=== PATIENT | female | born 1970 | race Caucasian/White ===

== ENCOUNTER 2017-01-06 09:29 | Outpatient (CLI) | payer OTHER ==
--- NOTE | 2017-01-06 19:51 | MRI Report ---
EXAM: LEFT HIP MRI WITHOUT CONTRAST EXAM DATE: 01/06/2017 10:32 AM. CLINICAL HISTORY: Left hip pain for 10 years. COMPARISON: None. TECHNIQUE: Multiplanar, multisequence T1-weighted and fluid-sensitive, small [id number]-[id number] sequences of the hip and large [id number]-[id number] sequences of the pelvis without contrast. Other: None. FINDINGS: Bones: No fractures or subluxations. No marrow edema or bone lesions. No avascular necrosis. Left Hip: No acetabular retroversion. Femoral head/neck offset is within normal limits. No effusion o r loose bodies. The articular cartilage is intact. No labral tear is demonstrated on this nonarthrogr aphic study. The ligamentum teres is intact. Other Joints: The visualized lumbar spine, sacroiliac joints, symphysis pubis, and contralateral hip are unremarkable. Musculature: No edema or fatty atrophy. Mild insertional tendinopathy of bilateral gluteus medius an d minimus tendons with mild edema. The visualized hamstring tendons are normal. The left ischiofemora l space is narrowed with mild edema in the quadratus femoris suggestive of ischiofemoral impingement. No sports hernia. Pelvic Cavity: The visualized viscera are unremarkable. No lymphadenopathy. No free fluid in the pelv is. Other: The visualized sciatic nerves are unremarkable. No bursitis. The subcutaneous tissues are unre markable. IMPRESSION: 1. The left ischiofemoral space is narrowed with mild edema in the quadratus femoris suggestive of is chiofemoral impingement. 2. No labral tear is demonstrated on this nonarthrographic study. 3. No fractures or acute bony abnormality. 4. Mild insertional tendinopathy of bilateral gluteus medius and minimus tendons with mild edema. [facility] MUSCULOSKELET[facility]IOLOG[facility] SECTION Referring Provider Line: [phone] SITE ID: [id number]
== END 2017-01-06 09:30 | disposition home or self-care (01) ==
LOC: DI 09:29
PROVIDERS: ATTEND Family Medicine
DX: M67.952 Unspecified disorder of synovium and tendon, left thigh (principal)

== ENCOUNTER 2018-06-11 14:52 | Outpatient (CLI) | payer OTHER ==
--- NOTE | 2018-06-12 10:08 | XRAY Report ---
Reason: PAIN UNSPECIFIED JOINT, LOW BACK PAIN Procedure Date: 06/11/2018 Accession Number: [id number] / [id number] Procedure: WCP - Pelvis 1 View CPT Code: FULL RESULT: EXAM: PELVIS RADIOGRAPHY EXAM DATE: 06/11/2018 03:10 PM. CLINICAL HISTORY: PAIN UNSPECIFIED JOINT, LOW BACK PAIN. COMPARISON: None. TECHNIQUE: 1 view. FINDINGS: Bones: Normal. No fracture or bone lesion. Joints: The visualized hip, pubis symphysis, and sacroiliac joints are preserved. No subluxation. Soft Tissues: IUD No soft tissue swelling. IMPRESSION: Normal pelvis radiography. [facility]
--- NOTE | 2018-06-12 10:09 | XRAY Report ---
Reason: PAIN UNSPECIFIED JOINT, LOW BACK PAIN Procedure Date: 06/11/2018 Accession Number: [id number] / [id number] Procedure: WCP - Foot 2 View BILAT CPT Code: FULL RESULT: EXAMS: 1. Right Foot Radiography 2. Left Foot Radiography EXAM DATE: 06/11/2018 03:00 PM. CLINICAL HISTORY: PAIN UNSPECIFIED JOINT, LOW BACK PAIN. COMPARISON: None. TECHNIQUE: 2 views each foot. FINDINGS: Right: Bones: Postop changes first metatarsus with screws No fractures or bone lesions. Joints: Normal. No subluxations. Soft Tissues: Normal. No soft tissue swelling. Left: Bones: Postop changes first metatarsus with screws No fractures or bone lesions. Joints: Normal. No subluxations. Soft Tissues: Normal. No soft tissue swelling. IMPRESSION: Bilateral post bunion surgery. No acute findings [facility]
--- NOTE | 2018-06-12 10:10 | XRAY Report ---
Reason: PAIN UNSPECIFIED JOINT, LOW BACK PAIN Procedure Date: 06/11/2018 Accession Number: [id number] / [id number] Procedure: WCP - Hand 2 View BILAT CPT Code: FULL RESULT: EXAMS: 1. Right Hand Radiography 2. Left Hand Radiography EXAM DATE: 06/11/2018 03:10 PM. CLINICAL HISTORY: PAIN UNSPECIFIED JOINT, LOW BACK PAIN. COMPARISON: None. TECHNIQUE: 3 views each hand. FINDINGS: Right: Bones: Normal. No fractures or bone lesions. Joints: Normal. No subluxations. Soft Tissues: Normal. No soft tissue swelling. Left: Bones: Normal. No fractures or bone lesions. Joints: Fifth DIP mild osteophyte Soft Tissues: Normal. No soft tissue swelling. IMPRESSION: 1. Negative right hand. 2. Mild degenerative changes fifth DIP joint [facility]
== END 2018-06-11 14:53 | disposition home or self-care (01) ==
LOC: DI.WCP 14:52
PROVIDERS: ATTEND Internal Medicine Rheumatology
DX: M54.5 Low back pain (principal); M19.042 Primary osteoarthritis, left hand
CPT/HCPCS: 72170

== ENCOUNTER 2020-06-17 07:52 | Outpatient (CLI) | payer OTHER ==
--- NOTE | 2020-06-17 17:29 | MRI Report ---
PROCEDURE: MRCP W/O INDICATIONS: ELEVATED DIRECT BILIRUBIN CONTRAST: None TECHNIQUE: Coronal ultra fast SE through the abdomen, axial 2-D spoiled GE in- and [id number], and breath-hold T2 FSE with fat saturation through the biliary system and pancreas. Oblique coronal and axial thin- slice ultra fast SE, radial thick-slab ultra fast SE centered on the extrahepatic bile ducts. COMPARISON: FINDINGS: Image quality: Excellent. Pancreas and biliary system: Intra- and extra-hepatic biliary ducts are non dilated. Pancreas is no rmal in morphology, without adjacent soft tissue edema. Pancreatic duct is normal in caliber, withou t developmental anomalies. Gallbladder demonstrates an anterior septum, no stones, and no polyps. No gallbladder wall thickening is present. The cystic duct is normal in caliber. The common bile duct a lso is normal. No intrahepatic biliary distention is seen. There is no common duct stone. Other solid organs: Liver and spleen are normal in size. No adrenal nodules. Both kidneys are norm al in size, without hydronephrosis. Nodes and vessels: No retroperitoneal or mesenteric adenopathy by size criteria. Aorta and inferior vena cava are normal in size. Bowel and peritoneum: Unenhanced bowel loops are normal in caliber. No free fluid. Lung bases: No basal pleural effusions. Heart size is normal. Bilateral breast implants show no ev idence of implant rupture. Bones and soft tissues: No ventral hernias. Bone marrow is of normal overall signal. IMPRESSION: No sign of biliary distention or ductal calculus. There is no inflammation involving the gallbladder. There is an anterior septum within the gallbladder, a normal anatomic variant not related to inflam matory symptomatology. Overall, the source of elevated bilirubin is not identified. Intrinsic hepatoc ellular disease may be present. A hepatic mass lesion is not seen. Reviewed by: Jose Francisco Lan MD on 06/17/2020 5:28 PM PST Approved by: Jose Francisco Lan MD on 06/17/2020 5:28 PM PST Station ID: [id number]
== END 2020-06-17 07:53 | disposition home or self-care (01) ==
LOC: DI 07:52
PROVIDERS: ATTEND Family Medicine
DX: R74.8 Abnormal levels of other serum enzymes (principal)

== ENCOUNTER 2021-06-22 19:35 | Observation (INO) | payer OTHER ==
[2021-06-22 20:02] LABS: BASOPHILS # (AUTO) 0.1 10^3/uL (0.0-0.1); BASOPHILS % (AUTO) 1.3 %; EOSINOPHILS # (AUTO) 0.2 10^3/uL (0.0-0.7); EOSINOPHILS % (AUTO) 3.3 %; HCT - HEMATOCRIT 30.4 % (37.0-47.0); HGB - HEMOGLOBIN 8.8 g/dL (12.0-16.0); LYMPHOCYTES # (AUTO) 1.4 10^3/uL (1.5-3.5); LYMPHOCYTES % (AUTO) 26.8 %; MEAN CORPUSCULAR HEMOGLOBIN 23.6 pg (27.0-31.0); MEAN CORPUSCULAR HGB CONC 28.9 g/dL (32.0-36.0); MEAN CORPUSCULAR VOLUME 81.5 fL (81.0-99.0); MEAN PLATELET VOLUME 9.2 fL (7.9-10.8); MONOCYTES # (AUTO) 0.6 10^3/uL (0.0-1.0); MONOCYTES % (AUTO) 10.5 %; NEUTROPHILS % (AUTO) 57.7 %; PLT - PLATELET COUNT 191 10^3/uL (130-450); RED BLOOD COUNT 3.73 10^6/uL (4.20-5.40); RED CELL DISTRIBUTION WIDTH 17.2 % (12.0-15.0); WHITE BLOOD COUNT 5.2 x10^3/uL (4.8-10.8)
[2021-06-22 20:22] LABS: CALCIUM 9.7 mg/dL (8.5-10.3); CREATININE 1.4 mg/dL (0.4-1.0); MAGNESIUM 2.3 mg/dL (1.7-2.8); PHOSPHORUS 2.9 mg/dL (2.5-4.6)
[2021-06-22 20:24] LABS: POTASSIUM 2.2 mmol/L (3.5-5.0)
--- NOTE | 2021-06-22 20:24 | ED Physician Documentation ---
History of Present Illness - Stated complaint Stated Complaint: LOW POTASSIUM - Chief complaint Chief Complaint: General - History obtained from History obtained from: Patient - History of Present Illness Timing: Today Pain level max: 0 Pain level now: 0 - Additonal information Additional information: Patient is a 42-year-old female who presents to the emergency department stating that she was called by her doctor to come to the emergency department for a low potassium level today. She states that she does not know how low the potassium was that the doctor from the [facility] did not tell her. She states that she has not had issues with potassium in the past. She states that she has felt mildly short of breath for several weeks. Has not noticed any blood in the stool. Nothing makes it better or worse. Occasionally has palpitations. Review of Systems Ten Systems: 10 systems reviewed and negative Constitutional: denies: Fever, Chills Throat: denies: Sore throat Cardiac: denies: Chest pain / pressure, Calf pain GI: denies: Nausea, Vomiting, Diarrhea, Hematemesis Skin: denies: Rash Musculoskeletal: denies: Neck pain, Back pain Neurologic: denies: Headache PD PAST MEDICAL HISTORY - Past Medical History Past Medical History: Yes Cardiovascular: Hypertension Neuro: Seizure disorder - Present Medications Home Medications: Ambulatory Orders Medication Instructions Recorded Confirmed Buspirone HCl 10 mg PO DAILY 06/22/21 06/22/21 Chlorthalidone 25 mg PO DAILY 06/22/21 06/22/21 Duloxetine HCl [Cymbalta] 60 mg PO DAILY 06/22/21 06/22/21 Topiramate 50 mg PO DAILY 06/22/21 06/22/21 lamoTRIgine [LaMICtal] 100 mg PO DAILY 06/22/21 06/22/21 - Allergies Allergies/Adverse Reactions: Allergies Allergy/AdvReac Type Severity Reaction Status Date / Time Sulfa (Sulfonamide Allergy Anaphylaxis Verified 06/22/21 19:42 Antibiotics) - Living Situation Living Arrangement: reports: At home PD ED PE NORMAL - Vitals Vital signs reviewed: Yes - General General: Alert and oriented X 3, No acute distress - HEENT HEENT: PERRL, Moist mucous membranes - Neck Neck: Supple, no meningeal sign - Cardiac Cardiac: RRR, Strong equal pulses - Respiratory Respiratory: No respiratory distress, Clear bilaterally - Abdomen Abdomen: Soft, Non tender, Non distended - Rectal Rectal: Pt declined - Derm Derm: Warm and dry - Extremities Extremities: No edema, No calf tenderness / cord - Neuro Neuro: Alert and oriented X 3 - Psych Psych: Normal mood, Normal affect Results - Vitals Vitals: Vital Signs - 24 hr 06/22/21 19:42 Temperature 36.5 C Heart Rate 87 Respiratory 16 Rate Blood Pressure 148/80 H O2 Saturation 100 Oxygen O2 Source Room air - EKG (time done) 2006 Rate: Rate (enter#) (67) Rhythm: NSR [place]: Normal Intervals: Normal MD QRS: Normal Ischemia: Normal ST segments - Labs Labs: Laboratory Tests 06/22/21 06/22/21 06/22/21 19:56 19:56 19:56 WBC 5.2 RBC 3.73 L Hgb 8.8 L Hct 30.4 L MCV 81.5 MCH 23.6 L MCHC 28.9 L RDW 17.2 H Plt Count 191 MPV 9.2 Neut # (Auto) 3.0 Lymph # (Auto) 1.4 L [place] # (Auto) 0.6 Eos # (Auto) 0.2 Baso # (Auto) 0.1 Absolute Nucleated RBC 0.00 Nucleated RBC % 0.0 Sodium 131 L Potassium 2.2 L* Chloride 88 L Carbon Dioxide 29 Anion Gap 14.0 H BUN 23 H Creatinine 1.4 H Estimated GFR (MDRD) 40 L Glucose 138 H Calcium 9.7 Phosphorus 2.9 Magnesium 2.3 Troponin I High Sens 7.4 B-Natriuretic Peptide 06/22/21 19:56 WBC RBC Hgb Hct MCV MCH MCHC RDW Plt Count MPV Neut # (Auto) Lymph # (Auto) [place] # (Auto) Eos # (Auto) Baso # (Auto) Absolute Nucleated RBC Nucleated RBC % Sodium Potassium Chloride Carbon Dioxide Anion Gap BUN Creatinine Estimated GFR (MDRD) Glucose Calcium Phosphorus Magnesium Troponin I High Sens B-Natriuretic Peptide 30 - Rads (name of study) cxr Radiology: Final report received, EMP read contemporaneously, See rad report (no acute disease) PD MEDICAL DECISION MAKING - ED course Complexity details: reviewed results, re-evaluated patient, considered differential, d/w patient, d/w marine engineering consultant ED course: 50-year-old female with what appears to be dehydration, acute renal insufficiency and hypokalemia, likely all secondary to the chlorthalidone. Patient is well-appearing, nontoxic. Given IV fluids and IV potassium. We will place the patient in observation for continued care. She also has anemia, unclear etiology. She declined a rectal exam here. She has not had a colonoscopy before, but could consider this as an outpatient. Discussed the case with Dr. Urena, hospitalist who accepts for observation This document was made in part using voice recognition software. While efforts are made to proofread this document, sound alike and grammatical errors may occur. The only old labs that are available currently are from 2013. Departure - Departure Disposition: ED Place in Observation Clinical Impression: Hypokalemia, Acute renal insufficiency, Hyponatremia, Hypochloremia Anemia Qualifiers: Anemia type: unspecified type Qualified Code(s): D64.9 - Anemia, unspecified Condition: Stable
[2021-06-22] MEDS ORDERED: POTASSIUM CHLOR 10 MEQ/100 ML 10 MEQ/100 ML BAG IV STA ×2 (20:27)
--- NOTE | 2021-06-22 20:29 | XRAY Report ---
PROCEDURE: Chest 1 View X-Ray INDICATIONS: dyspnea TECHNIQUE: One view of the chest was acquired. COMPARISON: None FINDINGS: Surgical changes and devices: None. Lungs and pleura: No pleural effusions or pneumothorax. Lungs are clear. Mediastinum: Mediastinal contours appear normal. Heart size is normal. Bones and chest wall: No suspicious bony lesions. Overlying soft tissues appear unremarkable. IMPRESSION: Chest without acute cardiopulmonary abnormalities. No focal airspace disease. Reviewed by: Toby Olivares MD on 06/22/2021 8:28 PM [facility] Approved by: Toby Olivares MD on 06/22/2021 8:28 PM [facility] Station ID: [id number]
[2021-06-22 21:38] LABS: B. PARAPERTUSSIS- RESP PCR PAN NOT DETECTED; B. PERTUSSIS- RESP PCR PANEL NOT DETECTED; C. PNEUMONIAE- RESP PCR PANEL NOT DETECTED; CORONAVIRUS 229E-RESP PCR NOT DETECTED; CORONAVIRUS HKU1-RESP PCR NOT DETECTED; CORONAVIRUS NL63-RESP PCR NOT DETECTED; CORONAVIRUS OC43-RESP PCR NOT DETECTED; HUMAN METAPNEUMOVIRUS NOT DETECTED; INFLUENZA A- RESP PCR PANEL NOT DETECTED; INFLUENZA B - RESP PCR PANEL NOT DETECTED; M. PNEUMONIAE- RESP PCR PANEL NOT DETECTED; PARAINFLUENZA VIRUS 1 NOT DETECTED; PARAINFLUENZA VIRUS 2 NOT DETECTED; PARAINFLUENZA VIRUS 3 NOT DETECTED; PARAINFLUENZA VIRUS 4 NOT DETECTED; RHINOVIRUS/ENTEROVIRUS NOT DETECTED; RSV- RESP PCR PANEL NOT DETECTED; SARS-CoV-2 -RESP PCR PANEL NOT DETECTED
[2021-06-22] MEDS ORDERED: SODIUM CHLORIDE FLUSH 0.9% 10 ML SYRINGE IVP PRN (21:49)
[2021-06-22] MEDS ORDERED: ACETAMINOPHEN 325 MG TABLET PO PRN (21:49)
--- NOTE | 2021-06-22 21:59 | HISTORY & PHYSICAL EXAMINATION ---
Chief Complaint - Chief Complaint Chief Complaint: My doctor sent me into ER History of Present Illness - Admitted From Admitted From:: ED - History Obtained From History obtained from: ED provider and the patient - History of Present Illness HPI Comment/Other: This is a 50-year-old white female with a history of seizure disorder, fibromyalgia, anxiety and hypertension. She was sent into the ED by her doctor's office after being called and told her potassium was very low. She had had blood tests done earlier to check her seizure medication blood levels and electrolytes. The patient denied any significant symptoms in the ED such as chest pain, shortness of breath, syncope or palpitations. Her labs were redone in the ED and showed a potassium of 2.2, sodium 131, hemoglobin 8.8 (the last hemoglobin was 14, from labs in 2013), and creatinine 1.4. She started to get iv fluids and potassium replacement in the ED and is being placed in Observation status to continue potassium replacement while on telemetry. The patient denies any hematemesis or melena. She takes Chlorthalidone for blood pressure control, as one of her medications. She is also on anti-seizure medications. These blood levels were not rechecked today in the ED. History - Past Medical History Cardiovascular: reports: Hypertension Respiratory: reports: None Neuro: reports: Seizure disorder Endocrine/Autoimmune: reports: None GI: reports: None CRITICAL CARE RN: reports: None : reports: None HEENT: reports: None Psych: reports: Depression, Anxiety, Other (Remote Hx of alcohol abuse from age 20 to 2013.) Musculoskeletal: reports: Fibromyalgia Derm: reports: None - Past Surgical History Cardiovascular: reports: Other - Family & Social History Family History Comment/Other: She has 3 children who are adults and have moved out of the house. 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 Living arrangement: At home Living Situation: With spouse/s.o. Social History Notes: She admits to alcohol abuse from age 20 until 2012, when her seizure disorder was discovered. She was sober through all her pregnancies she reported and currently has a rare beer or cocktail. She is a non-smoker and never smoked. - Substance History Use: Uses substance without health or social issues: NONE Meds/Allgy - Home Medications Home Medications: Ambulatory Orders Medication Instructions Recorded Confirmed Buspirone HCl 10 mg PO DAILY 06/22/21 06/22/21 Chlorthalidone 25 mg PO DAILY 06/22/21 06/22/21 Duloxetine HCl [Cymbalta] 60 mg PO DAILY 06/22/21 06/22/21 Topiramate 50 mg PO DAILY 06/22/21 06/22/21 lamoTRIgine [LaMICtal] 100 mg PO DAILY 06/22/21 06/22/21 - Allergies Allergies/Adverse Reactions: Allergies Allergy/AdvReac Type Severity Reaction Status Date / Time Sulfa (Sulfonamide Allergy Anaphylaxis Verified 06/22/21 19:42 Antibiotics) Review of Systems - Cardiovascular Cariovascular: reports: Palpitations (Ivone skipped beats), Other (She has had 2-3 episodes of "body shaking" and near syncope lately when she stands.) - Musculoskeletal Musculoskeletal: reports: Back pain, Joint pain (from Fibromyalgia) - Neurological Neurological: reports: Seizures (Last grand mal seizure was remote, but she gets "auras" for which she takes Lorazepam prn.) - All Other Systems All Other Systems: reports: Reviewed and negative Exam - Vital Signs Reviewed Vital Signs: Yes Vital Signs: Vital Signs x48h Temp Pulse Resp BP Pulse Ox 06/22/21 19:42 36.5 C 87 16 148/80 H 100 - Physical Exam General Appearance: positive: No acute distress, Alert, Other (Hair is shaven off, she is wearing a baseball cap.) Eyes Bilateral: positive: Normal inspection, EOMI ENT: positive: ENT inspection nml, No signs of dehydration Neck: positive: Nml inspection, No JVD Respiratory: positive: No respiratory distress, Breath sounds nml Cardiovascular: positive: Regular rate & rhythm, No murmur Abdomen: positive: Non-tender, Nml bowel sounds, No distention Skin: positive: Warm, Dry Extremities: positive: Non-tender, No pedal edema Neurologic/Psychiatric: positive: Oriented x3, Other (Non-focal) Conclusion/Plan - Problem List (1) Hypokalemia Conclusion/Plan: This is likely due to Chlorthalidone daily and long-term use, without a Potassium supplement. We will continue to replace with IV maintenance fluids containing potassium and will give potassium riders IV and oral potassium p.o. Follow her potassium level every 6-12 hours. Continue on telemetry while she has such severely low K We will also check a serum magnesium level with her next potassium blood draw since this could also be lost when using Chlorthalidone. (2) Hyponatremia Conclusion/Plan: This is likely hypovolemic hyponatremia, given her use of thiazide diuretic and the new GEORGI. Will continue replacement with IV normal saline Follow BMP daily (3) Acute renal insufficiency Conclusion/Plan: This is likely from her diuretic use. In review of systems she told me she has had "2-3 episodes of "body shaking" and near syncope lately when she stands". This could be from orthostasis. She and her think it could be seizures trying to break through, and for these symptoms her serum seizure drug levels were drawn, ordered by her doctor. Continue with IV fluids that were started in the ED. Stop and remain off the thiazide diuretic will be advised. Avoid nephrotoxins. Follow BUN/creatinine daily. Will check orthostatic vital signs in the morning. I advised she not use the chlorthalidone any longer as a blood pressure medicine. A different one can be started if needed. (4) Anemia Conclusion/Plan: Will check her serum iron stores and B12 and folate levels and guaiac of her stool to initiate the work-up of cause of anemia. Qualifiers: Anemia type: unspecified type Qualified Code(s): D64.9 - Anemia, unspecified (5) HTN (hypertension) Conclusion/Plan: Stop and remain off the thiazide diuretic will be advised. I discussed this in detail with the patient and explained why. Her "body shaking when she stands" symptom, could be near syncope from orthostasis. Will check orthostatic vital signs in the morning Her supine vital signs will be monitored and she may need to be started on a different agent for blood pressure control, if needed, potentially using Amlodipine 2.5 mg daily. (6) Seizure disorder Conclusion/Plan: Her usual anti-seizure medications will be continued. (7) Anxiety Conclusion/Plan: Her usual medications will be continued. She requests a one-time oral medication for anxiety currently. Lorazepam 1 mg p.o. at bedtime now will be ordered (8) Fibromyalgia Conclusion/Plan: Her usual medications will be continued - Lab Results Fish Bones: 06/22/21 19:56 06/22/21 19:56
[2021-06-22] MEDS ORDERED: NS W/20 MEQ KCL 1,000 ML IV SCH (22:00)
[2021-06-22] MEDS ORDERED: LORazepam 1 MG TABLET PO STA (23:45)
[2021-06-23] MEDS ORDERED: POTASSIUM CHLORIDE 20 MEQ TABLET PO ONE ×3 (00:09→11:39)
[2021-06-23] MEDS: SODIUM CHLORIDE FLUSH 0.9% 10 ML SYRINGE IVP SCH ×2 (00:39→12:45)
[2021-06-23] MEDS: POTASSIUM CHLOR 10 MEQ/100 ML 10 MEQ/100 ML BAG IV SCH ×7 (00:44→10:56)
[2021-06-23 05:31] LABS: BASOPHILS % (AUTO) 0.9 %; EOSINOPHILS # (AUTO) 0.2 10^3/uL (0.0-0.7); EOSINOPHILS % (AUTO) 3.6 %; HCT - HEMATOCRIT 28.8 % (37.0-47.0); HGB - HEMOGLOBIN 8.2 g/dL (12.0-16.0); LYMPHOCYTES # (AUTO) 1.4 10^3/uL (1.5-3.5); LYMPHOCYTES % (AUTO) 30.9 %; MEAN CORPUSCULAR HGB CONC 28.5 g/dL (32.0-36.0); MEAN CORPUSCULAR VOLUME 80.7 fL (81.0-99.0); MEAN PLATELET VOLUME 9.6 fL (7.9-10.8); MONOCYTES # (AUTO) 0.5 10^3/uL (0.0-1.0); MONOCYTES % (AUTO) 11.4 %; NEUTROPHILS # (AUTO) 2.4 10^3/uL (1.5-6.6); PLT - PLATELET COUNT 197 10^3/uL (130-450); RED BLOOD COUNT 3.57 10^6/uL (4.20-5.40); RED CELL DISTRIBUTION WIDTH 17.1 % (12.0-15.0); WHITE BLOOD COUNT 4.5 x10^3/uL (4.8-10.8)
[2021-06-23 05:53] LABS: CALCIUM 9.6 mg/dL (8.5-10.3); CREATININE 1.1 mg/dL (0.4-1.0)
[2021-06-23 06:06] LABS: FOLATE 18.78 ng/mL (5.90 - >24.8)
[2021-06-23 07:35] VITALS: BP 118/69
[2021-06-23] MEDS ORDERED: FERROUS SULFATE 325 MG TABLET PO SCH (08:26)
[2021-06-23] MEDS ORDERED: busPIRone 5 MG TABLET PO SCH ×2 (09:00→09:39)
[2021-06-23] MEDS ORDERED: lamoTRIgine 100 MG TABLET PO SCH (09:00)
[2021-06-23] MEDS ORDERED: DULoxetine 30 MG CAPSULE PO SCH ×2 (09:00→09:39)
[2021-06-23] MEDS ORDERED: TOPIRAMATE 25 MG TABLET PO SCH (09:00)
--- NOTE | 2021-06-23 09:23 | Discharge Plan ---
Discharge Plan Problem Reviewed?: Yes Disposition: Home, Self Care Condition: Stable Prescriptions: Ferrous Sulfate [Feosol] 325 mg PO DAILY #30 tablet Diet: Regular Activity Restrictions: Activity as Tolerated Shower Restrictions: No (fall precaution) Instruction Topics: Anemia Ch, Dehydration, Hypokalemia Dc, Hyponatremia Dc, ED Diet High Potassium Health Concerns: dehydration, hypokalemia, anemia Plan of Treatment: You had significant hypokalemia and dehydration at the admission. After treatment, your hypokalemia and dehydration status are resolved now. Your home medication HCTZ is hold now. You may keep hydration at home, followup with your PCP in one week to recheck your Electrolytes. Your HGB is 8.2 now. You are also found iron deficiency. You are prescribed iron supplement. You may follow-up with your PCP in 1 week to recheck your hemoglobin level, then Follow-up with staff air tactical officer as outpatient Care Goals: Stabilization and improvement/resolved of your medical problems Assessment: Discussed the care plan with you, answered your questions, you understood and agreed Additional Instructions or Follow Up instructions: You may follow-up with your PCP in 1 week, and blood work to check hemoglobin and electrolytes. Should your symptoms return or worse, you may present to ER or call 911 for help No Smoking: If you smoke, Please STOP! Call for help. Follow-up with: RAMIRO AGUILAR MD [Primary Care Provider] -
--- NOTE | 2021-06-23 09:55 | DISCHARGE SUMMARY ---
Discharge Summary Admit Date: 06/22/21 Discharge Date: 06/23/21 Discharging Provider: Karel Huerta Primary Care Provider: Toby Murguia Condition at Discharge: Stable Discharge Disposition: 01 Home, Self Care Discharge Facility Name: home - DIAGNOSES Discharge Diagnoses with Status of Each Condition: (1) Hypokalemia potassium is 3.4 now. pt was given another 20meq PO potassium. Patient may follow-up with her PCP to recheck electrolytes in 1 week (2) Hyponatremia Sodium Is 134. Advised patient keep hydration, follow-up with her PCP to recheck electrolytes in 1 week. Patient's home medication HCTZ is on hold. (3) Acute renal insufficiency Resolved, patient may keep hydration in the home (4) Anemia pt denies black or fresh bloody stool. pt declined rectal examination at ER. Patient is found to have iron deficiency. Patient is prescript iron supplement. Patient may follow-up with her PCP to recheck hemoglobin In 1 week and follow-up with life trainer as outpatient (5) HTN (hypertension) stable. (6) Seizure disorder stable, no seizure at hospital. Resume patient home meds (7) Anxiety Stable, resume patient's home meds (8) Fibromyalgia Stable, resume home meds - [facility] History of Present Illness: refer from Dr. Danay Delong's HPI on 06/22/21 This is a 50-year-old white female with a history of seizure disorder, fibromyalgia, anxiety and hypertension. She was sent into the ED by her doctor's office after being called and told her potassium was very low. She had had blood tests done earlier to check her seizure medication blood levels and electrolytes. The patient denied any significant symptoms in the ED such as chest pain, shortness of breath, syncope or palpitations. Her labs were redone in the ED and showed a potassium of 2.2, sodium 131, hemoglobin 8.8 (the last hemoglobin was 14, from labs in 2013), and creatinine 1.4. She started to get iv fluids and potassium replacement in the ED and is being placed in Observation status to continue potassium replacement while on telemetry. The patient denies any hematemesis or melena. She takes Chlorthalidone for blood pressure control, as one of her medications. She is also on anti-seizure medications. These blood levels were not rechecked today in the ED. - ALLERGIES Allergies/Adverse Reactions: Allergies Allergy/AdvReac Type Severity Reaction Status Date / Time Sulfa (Sulfonamide Allergy Anaphylaxis Verified 06/22/21 19:42 Antibiotics) - MEDICATIONS Home Medications: Ambulatory Orders Medication Instructions Recorded Confirmed Buspirone HCl 10 mg PO DAILY 06/22/21 06/22/21 Duloxetine HCl [Cymbalta] 60 mg PO DAILY 06/22/21 06/22/21 Topiramate 50 mg PO DAILY 06/22/21 06/22/21 lamoTRIgine [LaMICtal] 100 mg PO DAILY 06/22/21 06/22/21 Ferrous Sulfate [Feosol] 325 mg PO DAILY #30 tablet 06/23/21 - PHYSICAL EXAM AT DISCHARGE General Appearance: positive: No acute distress, Alert. negative: Lethargic Eyes Bilateral: positive: Normal inspection, No lid inflammation ENT: positive: ENT inspection nml, No signs of dehydration. negative: Purulent nasal drainage Neck: positive: Nml inspection, Trachea midline. negative: Tracheal deviation Respiratory: positive: Chest non-tender, No respiratory distress, Breath sounds nml. negative: Wheezes, Rales Cardiovascular: positive: Regular rate & rhythm, No murmur. negative: Tachycardia, Bradycardia, Systolic murmur Peripheral Pulses: positive: 2+ Abdomen: positive: Non-tender, Nml bowel sounds, No distention. negative: Tenderness Back: positive: Nml inspection Skin: positive: Color nml, Warm, Dry. negative: Cyanosis Extremities: positive: Non-tender, Full ROM, Nml appearance Neurologic/Psychiatric: positive: Oriented x3, Motor nml, Sensation nml, Mood/affect nml. negative: Weakness, Sensory loss, Facial droop, Slurred/abnml speech, Depressed mood/affect - LABS Result Diagrams: 06/23/21 04:32 06/23/21 11:04 - FOLLOW UP Follow Up: You had significant hypokalemia and dehydration at the admission. After treatment, your hypokalemia and dehydration status are resolved now. Your home medication HCTZ is hold now. You may keep hydration at home, followup with your PCP in one week to recheck your Electrolytes. Your HGB is 8.2 now. You are also found iron deficiency. You are prescribed iron supplement. You may follow-up with your PCP in 1 week to recheck your hemoglobin level, then Follow-up with life trainer as outpatient. You may follow-up with your PCP in 1 week, and blood work to check hemoglobin and electrolytes. Should your symptoms return or worse, you may present to ER or call 911 for help - TIME SPENT Time Spent in Discharge (Minutes): 30
== END 2021-06-23 12:48 | disposition home or self-care (01) ==
LOC: ED 19:35 → MS2 21:49
PROVIDERS: ADMIT Internal Medicine; ATTEND Nurse Practitioner Gerontology
DX: E87.6 Hypokalemia (principal); E86.0 Dehydration; G40.909 Epilepsy, unspecified, not intractable, without status epilepticus; F32.A Depression, unspecified; F41.9 Anxiety disorder, unspecified; E87.1 Hypo-osmolality and hyponatremia; N28.9 Disorder of kidney and ureter, unspecified; D64.9 Anemia, unspecified; I10 Essential (primary) hypertension; M79.7 Fibromyalgia; R00.2 Palpitations; Z20.822 Contact with and (suspected) exposure to COVID-19
CPT/HCPCS: 0202U; 36415; 71045; 80048; 80175; 82607; 82746; 83540; 83735; 83880; 84100; 84132; 84466; 84484; 85025; 93005; 96360; 96361; 99283; 99285; A9270; G0378; J8499

== ENCOUNTER 2021-08-08 10:45 | Outpatient (CLI) | payer OTHER ==
[2021-08-08] MEDS: ALBUTEROL 1 PUFF INH STA (12:53)
== END 2021-08-08 10:46 | disposition home or self-care (01) ==
LOC: RT 10:45
PROVIDERS: ATTEND Family Medicine
DX: R06.00 Dyspnea, unspecified (principal)
CPT/HCPCS: 94060; 94729

== ENCOUNTER 2023-01-25 19:59 | Emergency (ER) | payer OTHER ==
[2023-01-25 20:27] LABS: MUDS CUTOFF CONCENTRATIONS CUTOFF CONC BELOW:
[2023-01-25 20:31] LABS: HCT - HEMATOCRIT 38.4 % (37.0-47.0); HGB - HEMOGLOBIN 12.6 g/dL (12.0-16.0); LYMPHOCYTES # (AUTO) 0.8 10^3/uL (1.5-3.5); LYMPHOCYTES % (AUTO) 18.1 %; MEAN CORPUSCULAR HEMOGLOBIN 35.2 pg (27.0-31.0); MEAN CORPUSCULAR HGB CONC 32.8 g/dL (32.0-36.0); MEAN CORPUSCULAR VOLUME 107.3 fL (81.0-99.0); MEAN PLATELET VOLUME 8.5 fL (7.9-10.8); MONOCYTES # (AUTO) 0.4 10^3/uL (0.0-1.0); NEUTROPHILS # (AUTO) 3.1 10^3/uL (1.5-6.6); NEUTROPHILS % (AUTO) 71.7 %; PLT - PLATELET COUNT 79 10^3/uL (130-450); RED BLOOD COUNT 3.58 10^6/uL (4.20-5.40); RED CELL DISTRIBUTION WIDTH 13.5 % (12.0-15.0); WHITE BLOOD COUNT 4.3 x10^3/uL (4.8-10.8)
[2023-01-25 20:31] LABS: BILIRUBIN,URINE NEGATIVE (NEGATIVE); GLUCOSE, URINE (UA) NEGATIVE (NEGATIVE); KETONES,URINE (UA) NEGATIVE (NEGATIVE); LEUKOCYTE ESTERASE, URINE NEGATIVE (NEGATIVE); NITRITE,URINE NEGATIVE (NEGATIVE); OCCULT BLOOD,URINE NEGATIVE (NEGATIVE); PH,URINE 6.5 PH (5.0-7.5); PROTEIN,URINE NEGATIVE (NEGATIVE); UROBILINOGEN,URINE 1 (NORMAL) E.U./dL (NORMAL)
[2023-01-25 20:33] LABS: CLARITY,URINE CLEAR (CLEAR); HCG UR QUAL NEGATIVE
[2023-01-25 20:42] LABS: AMPHETAMINE SCREEN,URINE NEGATIVE (NEGATIVE); BARBITURATE SCREEN,UR NEGATIVE (NEGATIVE); BENZODIAZEPINES SCREEN, URINE POSITIVE (NEGATIVE); COCAINE SCREEN URINE NEGATIVE (NEGATIVE); METHADONE SCREEN, URINE NEGATIVE (NEGATIVE); METHAMPHETAMINES SCREEN, URINE NEGATIVE (NEGATIVE); OPIATE SCREEN, URINE NEGATIVE (NEGATIVE); OXYCODONE SCREEN, URINE POSITIVE (NEGATIVE); PROPOXYPHENE SCREEN, URINE NEGATIVE (NEGATIVE); THC CANNABINOID SCREEN, URINE NEGATIVE (NEGATIVE); TRICYCLIC ANTIDEPRESSANT,URINE NEGATIVE (NEGATIVE)
[2023-01-25 20:52] LABS: ALBUMIN 4.5 g/dL (3.2-5.5); ALBUMIN/GLOBULIN RATIO 1.4 (1.0-2.2); ALKALINE PHOSPHATASE 228 IU/L (42-121); ALT ALANINE AMINOTRANSFERASE 47 IU/L (10-60); AST ASPARTATE AMINOTRANSFERASE 81 IU/L (10-42); BUN - BLOOD UREA NITROGEN 17 mg/dL (6-20); CALCIUM 10.4 mg/dL (8.5-10.3); CARBON DIOXIDE - CO2 25 mmol/L (21-32); CHLORIDE 104 mmol/L (101-111); CREATININE 0.9 mg/dL (0.6-1.3); GFR - MDRD 66 (>89); GLUCOSE 92 mg/dL (74-104); LIPASE 94 U/L (11-82); SODIUM 139 mmol/L (135-145); TOTAL PROTEIN 7.8 g/dL (6.4-8.9)
[2023-01-25 20:53] LABS: ACETAMINOPHEN < 0.1 ug/mL; SALICYLATE < 1.5 mg/dL
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
[2023-01-25 21:29] LABS: THYROID STIMULATING HORMONE 1.23 uIU/mL (0.34-5.60)
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
[2023-01-26] MEDS ORDERED: ALPRAZolam 0.25 MG TABLET PO STA (02:45)
[2023-01-26] MEDS ORDERED: LORazepam 1 MG TABLET PO PRN (03:35)
[2023-01-26] MEDS ORDERED: ALBUTEROL NEB 2.5 MG/3 ML INH PRN (03:35)
[2023-01-26] MEDS ORDERED: traZODone 50 MG TABLET PO STA (03:37)
[2023-01-26] MEDS ORDERED: TOPIRAMATE 25 MG TABLET PO SCH (07:00)
[2023-01-26 07:14] VITALS: BP 109/63; O2SAT 96
[2023-01-26] MEDS ORDERED: DULoxetine 30 MG CAPSULE PO SCH (09:00)
[2023-01-26] MEDS ORDERED: lamoTRIgine 100 MG TABLET PO SCH (09:00)
[2023-01-26] MEDS ORDERED: lisinopriL 5 MG TABLET PO SCH (21:00)
[2023-01-26] MEDS ORDERED: traZODone 50 MG TABLET PO SCH ×2 (21:00)
== END 2023-01-26 08:30 ==
LOC: EDUNIT# → ED 19:59
DX: F32.A Depression, unspecified (principal); T46.4X2A Poisoning by angiotensin-converting-enzyme inhibitors, intentional self-harm, initial encounter; R89.2 Abnormal level of other drugs, medicaments and biological substances in specimens from other organs, systems and tissues; Z20.822 Contact with and (suspected) exposure to COVID-19
CPT/HCPCS: 36415; 80053; 80306; 80307; 80320; 80329; 81003; 81025; 83690; 84443; 85025; 87635; 94640; 99285; A9270; G0427; Q3014; 81001; 87086

== ENCOUNTER 2023-12-18 02:09 | Inpatient (IN) | payer OTHER ==
[2023-12-18 02:36] LABS: HCT - HEMATOCRIT 35.5 % (37.0-47.0); HGB - HEMOGLOBIN 12.4 g/dL (12.0-16.0); LYMPHOCYTES # (AUTO) 1.6 10^3/uL (1.5-3.5); LYMPHOCYTES % (AUTO) 32.4 %; MEAN CORPUSCULAR HEMOGLOBIN 36.7 pg (27.0-31.0); MEAN CORPUSCULAR HGB CONC 34.9 g/dL (32.0-36.0); MEAN PLATELET VOLUME 9.9 fL (7.9-10.8); MONOCYTES # (AUTO) 0.5 10^3/uL (0.0-1.0); MONOCYTES % (AUTO) 10.2 %; NEUTROPHILS # (AUTO) 2.7 10^3/uL (1.5-6.6); NEUTROPHILS % (AUTO) 57.2 %; PLT - PLATELET COUNT 54 10^3/uL (130-450); RED BLOOD COUNT 3.38 10^6/uL (4.20-5.40); RED CELL DISTRIBUTION WIDTH 14.2 % (12.0-15.0); WHITE BLOOD COUNT 4.8 x10^3/uL (4.8-10.8)
--- NOTE | 2023-12-18 02:38 | ED Physician Documentation ---
History of Present Illness - Stated complaint Stated Complaint: POSS OD - Chief complaint Chief Complaint: MHE - History obtained from History obtained from: Family () - Additonal information Additional information: 53-year-old woman with history of depression, anxiety, presents status post heavy alcohol use with vodka tonight as well as multiple pills of Ativan 0.5mg. saw her take numerous Ativan 0.5 mg tonight and then vomit immediately after. He was able to get 8 pills away from her. He states that she may have taken as many as 20 pills. Her prescription bottle states that she filled the ativan pills in July 2023 and states she's been taking as needed. He is unsure about any coingestions. Patient is sedated appearing upon arrival. 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 : None HEENT: None Psych: Depression, Anxiety, Other Musculoskeletal: Fibromyalgia Derm: None - Past Surgical History Past Surgical History: Yes Cardiovascular: Other - Present Medications Home Medications: Ambulatory Orders Medication Instructions Recorded Confirmed Topiramate 50 mg PO DAILY 06/22/21 01/25/23 LORazepam [Ativan] 1 mg PO PRN PRN 07/23/21 01/25/23 Albuterol Sulfate 1.25 mg IH DAILY 01/25/23 01/25/23 DULoxetine [Cymbalta] 30 mg PO DAILY 01/25/23 01/25/23 Eletriptan HBr [Relpax] 20 mg PO DAILY PRN 01/25/23 01/25/23 Fluticasone Propion/Salmeterol 1 puffs IH BID 01/25/23 01/25/23 [Fluticasone-Salmeterol 230-21] Lisinopril [Zestril] 10 mg PO DAILY 01/25/23 01/25/23 Montelukast [Singulair] 10 mg PO QPM 01/25/23 01/25/23 Tiotropium [place] [Spiriva 1 puffs IH DAILY PM 01/25/23 01/25/23 Respimat] lamoTRIgine [Lamictal Xr] 250 mg PO BID 01/25/23 01/25/23 traZODone [Desyrel] 50 mg PO HS 01/25/23 01/25/23 - Allergies Allergies/Adverse Reactions: Allergies Allergy/AdvReac Type Severity Reaction Status Date / Time Sulfa (Sulfonamide Allergy Anaphylaxis Verified 01/25/23 20:10 Antibiotics) - Social History Does the pt smoke?: No Smoking Status: Never smoker Does the pt drink ETOH?: Yes Does the pt have substance abuse?: No - Immunizations Immunizations are current?: Yes PD ED PE NORMAL - Vitals Vital signs reviewed: Yes - General General: No acute distress, Well developed/nourished, Other (sedated appearing, eye opening to verbal cues, intermittently squeezing hand on command. nonverbal) - HEENT HEENT: Atraumatic, PERRL, EOMI, Moist mucous membranes, Pharynx benign - Neck Neck: Supple, no meningeal sign - Cardiac Cardiac: RRR - Respiratory Respiratory: No respiratory distress, Clear bilaterally - Abdomen Abdomen: Non tender, Non distended - Derm Derm: Normal color, Warm and dry - Extremities Extremities: No deformity - Neuro Eye Opening: To Voice Motor: Obeys Commands Verbal: None GCS Score: 10 - Psych Psych: Other (sedated appearing) Results - Vitals Vitals: Vital Signs - 24 hr 12/18/23 12/18/23 12/18/23 02:19 02:35 02:53 Temperature 36.0 C L Heart Rate 79 93 88 Respiratory 18 18 14 Rate Blood Pressure 137/82 H 137/82 H 129/84 H O2 Saturation 95 98 98 If not protocol 2 2 : Oxygen Flow, liters/minute Oxygen O2 Source Nasal cannula - EKG (time done) 0244 EKG releavant findings:: EKG personally interpreted by author of this note. Relevant findings are: Rate: Rate (enter#) (87) Rhythm: NSR [place]: Normal Intervals: Normal MI QRS: Normal Ischemia: Normal ST segments - Labs Labs: Laboratory Tests 12/18/23 12/18/23 02:33 02:33 WBC 4.8 RBC 3.38 L Hgb 12.4 Hct 35.5 L MCV 105.0 H MCH 36.7 H MCHC 34.9 RDW 14.2 Plt Count 54 L MPV 9.9 Neut # (Auto) 2.7 Lymph # (Auto) 1.6 [place] # (Auto) 0.5 Eos # (Auto) 0.0 Baso # (Auto) 0.0 Absolute Nucleated RBC 0.00 Nucleated RBC % 0.0 Sodium 132 L Potassium 3.3 L Chloride 98 L Carbon Dioxide 23 Anion Gap 11.0 BUN 12 Creatinine 0.9 Estimated GFR (MDRD) 66 L Glucose 104 Calcium 8.8 Magnesium 1.7 Total Bilirubin 0.8 AST 47 H ALT 42 Alkaline Phosphatase 173 H Total Creatine Kinase 67 Total Protein 7.3 Albumin 4.2 Globulin 3.1 Albumin/Globulin Ratio 1.4 Lipase 115 H Acetaminophen 0.2 PD Medical Decision Making - ED course ED course: 53yF presents s/p overdose of ativan and alcohol tonight. patient has prior history of suicidal ideation per spouse. Plan to admit for monitoring for overdose. Departure - Departure Forms: PCP List
[2023-12-18 02:47] LABS: MAGNESIUM 1.7 mg/dL (1.7-2.3)
[2023-12-18] MEDS: SODIUM CHLORIDE 0.9% 1,000 ML IV STA ×2 (02:48→03:25)
[2023-12-18 02:53] LABS: ACETAMINOPHEN 0.2 ug/mL; ALBUMIN 4.2 g/dL (3.2-5.5); ALBUMIN/GLOBULIN RATIO 1.4 (1.0-2.2); ALKALINE PHOSPHATASE 173 IU/L (42-121); ALT ALANINE AMINOTRANSFERASE 42 IU/L (10-60); AST ASPARTATE AMINOTRANSFERASE 47 IU/L (10-42); BILIRUBIN,TOTAL 0.8 mg/dL (0.2-1.0); BUN - BLOOD UREA NITROGEN 12 mg/dL (6-20); CALCIUM 8.8 mg/dL (8.5-10.3); CARBON DIOXIDE - CO2 23 mmol/L (21-32); CHLORIDE 98 mmol/L (101-111); CK- CREATINE KINASE 67 IU/L (30-223); CREATININE 0.9 mg/dL (0.6-1.3); GFR - MDRD 66 (>89); GLUCOSE 104 mg/dL (74-104); LIPASE 115 U/L (11-82); POTASSIUM 3.3 mmol/L (3.5-4.5); SODIUM 132 mmol/L (135-145); TOTAL PROTEIN 7.3 g/dL (6.4-8.9)
[2023-12-18 03:05] LABS: THYROID STIMULATING HORMONE 1.96 uIU/mL (0.34-5.60)
[2023-12-18 03:09] LABS: ETOH - ETHANOL 250.6 mg/dL
[2023-12-18 03:13] LABS: SALICYLATE < 1.5 mg/dL
[2023-12-18] MEDS ORDERED: ONDANSETRON ODT 4 MG TABLET TL PRN (04:45)
[2023-12-18] MEDS ORDERED: ACETAMINOPHEN 325 MG TABLET PO PRN (04:45)
[2023-12-18 05:43] LABS: HCT - HEMATOCRIT 31.5 % (37.0-47.0); LYMPHOCYTES % (AUTO) 34.3 %; MEAN CORPUSCULAR HEMOGLOBIN 36.9 pg (27.0-31.0); MEAN CORPUSCULAR HGB CONC 34.9 g/dL (32.0-36.0); MEAN CORPUSCULAR VOLUME 105.7 fL (81.0-99.0); MEAN PLATELET VOLUME 9.3 fL (7.9-10.8); MONOCYTES % (AUTO) 7.9 %; NEUTROPHILS % (AUTO) 56.7 %; PLT - PLATELET COUNT 39 10^3/uL (130-450); RED BLOOD COUNT 2.98 10^6/uL (4.20-5.40); RED CELL DISTRIBUTION WIDTH 14.3 % (12.0-15.0); WHITE BLOOD COUNT 2.8 x10^3/uL (4.8-10.8)
--- NOTE | 2023-12-18 05:46 | HISTORY & PHYSICAL EXAMINATION ---
Chief Complaint - Chief Complaint Chief Complaint: od, lethargy History of Present Illness - History of Present Illness HPI Comment/Other: pt with h/o depression, anxiety and previous SI brought to hospital s/p OD on approx 20 pills, per . pt also consumed large amounts of etoh. denies having an altercation but states he had told her she needs to sleep. she also reportedly vomited. no reports of suicide per . History - Past Medical History Cardiovascular: reports: Hypertension Respiratory: reports: Asthma Neuro: reports: Migraines, Seizure disorder, Tremors Endocrine/Autoimmune: reports: None GI: reports: None ESTATE ADMINISTRATOR: reports: None : reports: None HEENT: reports: None Psych: reports: Depression, Anxiety, Other Musculoskeletal: reports: Fibromyalgia Derm: reports: None MRSA Hx?: No - Past Surgical History Cardiovascular: reports: Other - Family & Social History Family History Comment/Other: She has 3 children who are adults and have moved out of the house. 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 Living Situation: With spouse/s.o. Social History Notes: She admits to alcohol abuse from age 20 until 2012, when her seizure disorder was discovered. She was sober through all her pregnancies she reported and currently has a rare beer or cocktail. She is a non-smoker and never smoked. - Substance History Use: Uses substance without health or social issues: NONE, Alcohol Meds/Allgy - Home Medications Home Medications: Ambulatory Orders Medication Instructions Recorded Confirmed Topiramate 50 mg PO DAILY 06/22/21 01/25/23 LORazepam [Ativan] 1 mg PO PRN PRN 07/23/21 01/25/23 Albuterol Sulfate 1.25 mg IH DAILY 01/25/23 01/25/23 DULoxetine [Cymbalta] 30 mg PO DAILY 01/25/23 01/25/23 Eletriptan HBr [Relpax] 20 mg PO DAILY PRN 01/25/23 01/25/23 Fluticasone Propion/Salmeterol 1 puffs IH BID 01/25/23 01/25/23 [Fluticasone-Salmeterol 230-21] Lisinopril [Zestril] 10 mg PO DAILY 01/25/23 01/25/23 Montelukast [Singulair] 10 mg PO QPM 01/25/23 01/25/23 Tiotropium [place] [Spiriva 1 puffs IH DAILY PM 01/25/23 01/25/23 Respimat] lamoTRIgine [Lamictal Xr] 250 mg PO BID 01/25/23 01/25/23 traZODone [Desyrel] 50 mg PO HS 01/25/23 01/25/23 - Allergies Allergies/Adverse Reactions: Allergies Allergy/AdvReac Type Severity Reaction Status Date / Time Sulfa (Sulfonamide Allergy Anaphylaxis Verified 01/25/23 20:10 Antibiotics) Review of Systems - Other Findings Other Findings: pt somnolent / lethargic. unable to obtain at this time Exam - Vital Signs Vital Signs: Vital Signs x48h Temp Pulse Resp BP Pulse Ox O2 Flow Rate 12/18/23 05:30 85 16 125/88 H 100 2 12/18/23 05:00 78 16 100/70 100 2 12/18/23 04:30 81 16 103/70 99 2 12/18/23 04:00 83 16 107/67 99 2 12/18/23 03:25 83 16 111/72 99 12/18/23 02:53 88 14 129/84 H 98 2 12/18/23 02:35 93 18 137/82 H 98 2 12/18/23 02:19 36.0 C L 79 18 137/82 H 95 - Physical Exam Comments/Other: gen - asleep / lethargic. at bedside heent - nc/at heart - per ed charting lungs - breathing unlabored abd - soft msk - no acute abnl noted Conclusion/Plan - Lab Results Fish Bones: 12/18/23 02:33 12/18/23 02:33 - Other Other Results/Comments: pt with - - drug overdose multiple substances, but quantity unclear also with etoh intoxication maintaining airway, somnolent not a suicide attempt per - toxic metabolic encephalopathy d/t above maintaining airway, somnolent - h/o suicide attempt denies that this was an attempt nor did she verbalize anything
[2023-12-18 05:54] LABS: MAGNESIUM 1.6 mg/dL (1.7-2.3)
[2023-12-18 05:55] LABS: SLIDE REVIEW? Indicated
[2023-12-18 05:58] LABS: ABNORMAL LYMPHS % (MANUAL) 0 %; BAND NEUTROPHILS % (MANUAL) 0 %
[2023-12-18 06:01] LABS: ALBUMIN 3.8 g/dL (3.2-5.5); ALBUMIN/GLOBULIN RATIO 1.4 (1.0-2.2); ALKALINE PHOSPHATASE 149 IU/L (42-121); ALT ALANINE AMINOTRANSFERASE 35 IU/L (10-60); AST ASPARTATE AMINOTRANSFERASE 40 IU/L (10-42); BILIRUBIN,TOTAL 0.6 mg/dL (0.2-1.0); BUN - BLOOD UREA NITROGEN 10 mg/dL (6-20); CARBON DIOXIDE - CO2 21 mmol/L (21-32); CHLORIDE 105 mmol/L (101-111); CHOL/HDL RATIO 3.7 (<4.4); CHOLESTEROL 166 mg/dL; CREATININE 0.7 mg/dL (0.6-1.3); GFR - MDRD 88 (>89); GLUCOSE 92 mg/dL (74-104); HDL CHOLESTEROL 45 mg/dL; LDL CHOLESTEROL,CALCULATED 80 mg/dL; LDL/HDL RATIO 1.8 (<4.4); POTASSIUM 3.4 mmol/L (3.5-4.5); SODIUM 135 mmol/L (135-145); TOTAL PROTEIN 6.5 g/dL (6.4-8.9); TRIGLYCERIDES 204 mg/dL; VLDL CHOLESTEROL 41 mg/dL
[2023-12-18 06:05] LABS: LYMPHOCYTES % (MANUAL) 34 %; MONOCYTES # (MANUAL) 0.1 10^3/uL (0.0-1.0); NEUTROPHILS # (MANUAL) 1.7 10^3/uL (1.5-6.6)
[2023-12-18 06:06] LABS: PLATELET MORPHOLOGY NORMAL APPEARANCE (NORMAL); RBC MORPHOLOGY (MULTIPLE) 1+ MACROCYTOSIS (NORMAL)
[2023-12-18 06:07] LABS: PLATELET ESTIMATE, MANUAL DECREASED (<130,000) (NORMAL)
[2023-12-18 06:08] LABS: DIFFERENTIAL COMMENT MANUAL DIFFERENTIAL
[2023-12-18 06:13] LABS: THYROID STIMULATING HORMONE 0.99 uIU/mL (0.34-5.60)
[2023-12-18] MEDS: BUDESONIDE 0.5 MG/2 ML NEB INH SCH (08:17)
[2023-12-18] MEDS: FORMOTEROL FUMARATE NEB 20 MCG/2 ML INH SCH (08:18)
[2023-12-18] MEDS: IPRATROPIUM 0.2 MG/ML NEB INH SCH (08:18)
[2023-12-18] MEDS: ALBUTEROL NEB 2.5 MG/3 ML INH SCH (08:18)
[2023-12-18] MEDS: LACTATED RINGERS 1,000 ML IV SCH (08:43)
[2023-12-18] MEDS: SODIUM CHLORIDE FLUSH 0.9% 10 ML SYRINGE IVP SCH (08:44)
[2023-12-18] MEDS ORDERED: FLUTICASONE PROPION IH SCH (09:00)
[2023-12-18] MEDS ORDERED: [UNRECOGNIZED DRUG - OTHER] IH SCH (09:00)
[2023-12-18] MEDS ORDERED: SALMETEROL IH SCH (09:00)
[2023-12-18] MEDS: FAMOTIDINE 20 MG/2 ML VIAL IVP SCH (09:28)
[2023-12-18] MEDS: lisinopriL 5 MG TABLET PO SCH (09:30)
--- NOTE | 2023-12-18 11:12 | MISCELLANEOUS PROVIDER NOTE ---
Miscellaneous Provider Note - - Note: admitted this morning by telemedicine. On further interview with her , there is concern for amitriptyline overdose. He showed an empty bottle. This was filled in June for a 30-day supply, so unsure if she is actively taking this. UDS ordered to determine whether or not amitriptyline is in her system. This will not affect her immediate disposition, but it will necessitate a conversation with poison control
--- NOTE | 2023-12-18 11:53 | PHARMACY PROGRESS NOTE ---
- Best Possible Medication History Admit Date and Time: 12/18/23 0446 Processed by: Pharmacy Medications reviewed in ED?: Yes Patient Interview: Pt unable to participate Secondary Source(s): Spouse/Significant other, Pharmacy records, Insurance rec ords As the person ultimately responsible for medication therapy, providers are able to order a medication from an existing home medication list in [facility] via the "Reconcile Routine" prior to Confirmation of that medication by media production support manager. Such practice is discouraged except when the physician, in their clinical judgment, deems that a medical need exists for a medication without regard to previous use.
[2023-12-18 12:17] LABS: BILIRUBIN,URINE NEGATIVE (NEGATIVE); GLUCOSE, URINE (UA) NEGATIVE (NEGATIVE); KETONES,URINE (UA) NEGATIVE (NEGATIVE); LEUKOCYTE ESTERASE, URINE NEGATIVE (NEGATIVE); NITRITE,URINE NEGATIVE (NEGATIVE); OCCULT BLOOD,URINE NEGATIVE (NEGATIVE); PH,URINE 6.5 PH (5.0-7.5); PROTEIN,URINE NEGATIVE (NEGATIVE); UROBILINOGEN,URINE 0.2 (NORMAL) E.U./dL (NORMAL)
[2023-12-18 12:19] LABS: CLARITY,URINE CLEAR (CLEAR)
[2023-12-18 12:28] LABS: AMPHETAMINE SCREEN,URINE NEGATIVE (NEGATIVE); BARBITURATE SCREEN,UR NEGATIVE (NEGATIVE); BENZODIAZEPINES SCREEN, URINE NEGATIVE (NEGATIVE); BUPRENORPHINE SCREEN, URINE NEGATIVE (NEGATIVE); COCAINE SCREEN URINE NEGATIVE (NEGATIVE); METHADONE SCREEN, URINE NEGATIVE (NEGATIVE); METHAMPHETAMINES SCREEN, URINE NEGATIVE (NEGATIVE); OPIATE SCREEN, URINE NEGATIVE (NEGATIVE); OXYCODONE SCREEN, URINE NEGATIVE (NEGATIVE); THC CANNABINOID SCREEN, URINE NEGATIVE (NEGATIVE); TRICYCLIC ANTIDEPRESSANT,URINE POSITIVE (NEGATIVE)
[2023-12-18 13:51] LABS: ESTIMATED AVERAGE GLUCOSE 91 mg/dL (70-100); HEMOGLOBIN A1c% 4.8 % (4.27-6.07)
[2023-12-18] MEDS: MAGNESIUM SULFATE 2 GRAM 2 GM/50 ML BAG IV ONE (15:26)
[2023-12-18] MEDS: POTASSIUM CHLOR 10 MEQ/100 ML 10 MEQ/100 ML BAG IV SCH (16:41)
[2023-12-18] MEDS ORDERED: ACETAMINOPHEN 1,000 MG/100 ML 1,000 MG/100 ML BAG IV PRN (19:06)
--- NOTE | 2023-12-18 19:30 | ED Physician Documentation ---
ED Addendum - Addendum Addendum: 12/18/23 19:28 Patient was seen by hospitalist team after change of shift. Pt was being more rousable and having good vitals, sats, resp status. Change of status for patient from ICU to Med/Surg due to stability.
[2023-12-18] MEDS: SODIUM CHLORIDE FLUSH 0.9% 10 ML SYRINGE IVP PRN (22:24)
[2023-12-19 05:58] LABS: HCT - HEMATOCRIT 36.2 % (37.0-47.0); HGB - HEMOGLOBIN 12.8 g/dL (12.0-16.0); LYMPHOCYTES # (AUTO) 0.7 10^3/uL (1.5-3.5); LYMPHOCYTES % (AUTO) 16.9 %; MEAN CORPUSCULAR HGB CONC 35.4 g/dL (32.0-36.0); MEAN CORPUSCULAR VOLUME 104.6 fL (81.0-99.0); MEAN PLATELET VOLUME 9.6 fL (7.9-10.8); MONOCYTES # (AUTO) 0.3 10^3/uL (0.0-1.0); MONOCYTES % (AUTO) 7.7 %; NEUTROPHILS # (AUTO) 2.9 10^3/uL (1.5-6.6); NEUTROPHILS % (AUTO) 74.6 %; PLT - PLATELET COUNT 43 10^3/uL (130-450); RED BLOOD COUNT 3.46 10^6/uL (4.20-5.40); RED CELL DISTRIBUTION WIDTH 14.2 % (12.0-15.0); WHITE BLOOD COUNT 3.9 x10^3/uL (4.8-10.8)
[2023-12-19 06:13] LABS: CALCIUM 9.4 mg/dL (8.5-10.3); CREATININE 0.8 mg/dL (0.6-1.3); PHOSPHORUS 2.7 mg/dL (2.5-5.0); POTASSIUM 3.8 mmol/L (3.5-4.5)
[2023-12-19] MEDS ORDERED: hydrALAZINE INJ 20 MG/ML VIAL IVP PRN (07:44)
[2023-12-19] MEDS ORDERED: SODIUM CHLORIDE 0.9% 50 ML IV ONE (08:55)
[2023-12-19] MEDS: THIAMINE INJ 100 MG in SODIUM CHLORIDE 0.9% 50 ML IV SCH (08:58)
--- NOTE | 2023-12-19 11:25 | PROVIDER PROGRESS NOTE ---
Subjective - Prog Note Date Prog Note Date: 12/19/23 Prog Note Time: 11:25 - Subjective Pt reports feeling: No change Subjective: The patient was admitted overnight with an apparent drug overdose. This is a possible suicide attempt. The patient's found an empty bottle of amitriptyline. Poison control was notified and we are monitoring her with serial EKGs. When I saw the patient today she was lethargic. She would arouse to a sternal rub and she would mumble incoherently. Review of systems could not be obtained Current Medications - Current Medications Current Medications: Active Medications Generic Name Dose Route Start Last Admin Trade Name Freq PRN Reason Stop Dose Admin Acetaminophen 650 mg 12/18/23 04:45 Acetaminophen 325 Mg Tablet PO Q6H PRN Pain 1 to 4, or Fever Albuterol 1.25 mg 12/18/23 09:00 12/19/23 07:41 Albuterol Neb 2.5 Mg/3 Ml INH 2.5 mg DAILY JOEY Administration Budesonide 0.5 mg 12/18/23 07:00 12/19/23 07:41 Budesonide 0.5 Mg/2 Ml Neb INH 0.5 mg RTBID JOEY Administration Famotidine 20 mg 12/18/23 09:00 12/19/23 09:00 Famotidine 20 Mg/2 Ml Vial IVP 20 mg BID JOEY Administration Formoterol Fumarate 20 mcg 12/18/23 07:00 12/19/23 07:41 Formoterol Fumarate Neb 20 Mcg/2 Ml INH 20 mcg RTBID JOEY Administration Hydralazine HCl 10 mg 12/19/23 07:44 Hydralazine Inj 20 Mg/Ml Vial IVP Q6H PRN Hypertensive Emergency Acetaminophen 1,000 mg in 100 mls @ 400 mls/hr 12/18/23 19:06 Acetaminophen IV Q6HR PRN Moderate Pain (Level 4-6) Multivitamins 10 ml/ Thiamine 1,011.2 mls @ 100 mls/hr 12/19/23 12:00 HCl 100 mg/ Folic Acid 1 mg/ IV Sodium Chloride DAILY@1200 JOEY Ipratropium [place] 0.2 mg 12/18/23 07:00 12/19/23 07:40 Ipratropium 0.2 Mg/Ml Neb INH 0.5 mg RTQ6H JOEY Administration Lisinopril 10 mg 12/18/23 09:00 12/19/23 09:02 Lisinopril 5 Mg Tablet PO Not Given DAILY JOEY Lorazepam 1 mg 12/19/23 10:07 Lorazepam 2 Mg/Ml Vial IVP Q30M PRN CIWA >8 Protocol Ondansetron HCl 4 mg 12/18/23 04:45 Ondansetron Odt 4 Mg Tablet TL Q6HR PRN Nausea / Vomiting Sodium Chloride 10 ml 12/18/23 09:00 12/19/23 09:01 Sodium Chloride Flush 0.9% 10 Ml Syringe IVP 10 ml 0100,0900,1700 JOEY Administration Sodium Chloride 10 ml 12/18/23 04:45 12/18/23 22:24 Sodium Chloride Flush 0.9% 10 Ml Syringe IVP 10 ml PRN PRN Administration NEEDED PER PROVIDER ORDERS LORazepam [Ativan] 0.5 mg PO PRN PRN 07/23/21 DULoxetine [Cymbalta] 60 mg PO DAILY 01/25/23 Montelukast [Singulair] 10 mg PO QPM 01/25/23 traZODone [Desyrel] 50 mg PO HS 01/25/23 Benralizumab [Fasenra Pen] 30 mg SUBQ Q56D 12/18/23 Cetirizine [ZyrTEC] 10 mg PO BID 12/18/23 Fluticasone/Umeclidin/Vilanter [Trelegy Ellipta 200-62.5-25] 1 unit INH DAILY 12/18/23 Topiramate [Topamax] 150 mg PO BID 12/18/23 Objective - Vital Signs/Intake & Output Reviewed Vital Signs: Yes Vital Signs: Vital Signs x48h Temp Pulse Pulse Resp BP Pulse Ox 12/19/23 07:47 36.3 C L 85 20 143/98 H 97 12/19/23 07:42 85 22 12/19/23 05:00 36.6 C 85 22 179/110 H 98 Intake & Output: Intake & Output 12/16/23 12/17/23 12/18/23 12/19/23 23:59 23:59 23:59 23:59 Intake Total 3950.417 239.583 Output Total 1680 Balance 2270.417 239.583 - Objective General Appearance: positive: Lethargic, Other (She seems somewhat agitated) Eyes Bilateral: positive: Other (The patient is unable to hold her eyes open) ENT: positive: ENT inspection nml Respiratory: positive: Other (She would not cooperate for an exam. However her lungs sound clear anteriorly) Cardiovascular: positive: Regular rate & rhythm, No murmur, No gallop. negative: Friction rub Abdomen: positive: Non-tender, No organomegaly, Nml bowel sounds Skin: positive: Color nml, No rash, Warm, Dry Extremities: positive: Non-tender, Nml appearance Neurologic/Psychiatric: positive: Disoriented to person, Disoriented to place, Disoriented to time, Slurred/abnml speech, Other (She is somewhat agitated) - Lab Results Fish Bones: 12/19/23 05:44 12/19/23 05:44 Other Labs: Lab Results x24hrs 12/19/23 12/19/23 12/18/23 Range/Units 05:44 05:44 09:30 WBC 3.9 L (4.8-10.8) x10^3/uL RBC 3.46 L (4.20-5.40) 10^6/uL Hgb 12.8 (12.0-16.0) g/dL Hct 36.2 L (37.0-47.0) % MCV 104.6 H (81.0-99.0) fL MCH 37.0 H (27.0-31.0) pg MCHC 35.4 (32.0-36.0) g/dL RDW 14.2 (12.0-15.0) % Plt Count 43 L (130-450) 10^3/uL MPV 9.6 (7.9-10.8) fL Neut # (Auto) 2.9 (1.5-6.6) 10^3/uL Lymph # (Auto) 0.7 L (1.5-3.5) 10^3/uL [place] # (Auto) 0.3 (0.0-1.0) 10^3/uL Eos # (Auto) 0.0 (0.0-0.7) 10^3/uL Baso # (Auto) 0.0 (0.0-0.1) 10^3/uL Absolute Nucleated RBC 0.00 x10^3/uL Nucleated RBC % 0.0 /100WBC Sodium 139 (135-145) mmol/L Potassium 3.8 (3.5-4.5) mmol/L Chloride 105 (101-111) mmol/L Carbon Dioxide 23 (21-32) mmol/L Anion Gap 11.0 (6-13) BUN 11 (6-20) mg/dL Creatinine 0.8 (0.6-1.3) mg/dL Estimated GFR (MDRD) 76 L (>89) Glucose 97 (74-104) mg/dL Estimat Average Glucose (70-100) mg/dL Hemoglobin A1c % (4.27-6.07) % Calcium 9.4 (8.5-10.3) mg/dL Phosphorus 2.7 (2.5-5.0) mg/dL Magnesium 2.0 (1.7-2.3) mg/dL Urine Color LIGHT YELLOW Urine Clarity CLEAR (CLEAR) Urine pH 6.5 (5.0-7.5) PH Ur Specific [place] <=1.005 (1.002-1.030) Urine Protein NEGATIVE (NEGATIVE) mg/dL Urine Glucose (UA) NEGATIVE (NEGATIVE) mg/dL Urine Ketones NEGATIVE (NEGATIVE) mg/dL Urine Occult Blood NEGATIVE (NEGATIVE) Urine Nitrite NEGATIVE (NEGATIVE) Urine Bilirubin NEGATIVE (NEGATIVE) Urine Urobilinogen 0.2 (NORMAL) (NORMAL) E.U./dL Ur Leukocyte Esterase NEGATIVE (NEGATIVE) Ur Microscopic Review NOT INDICATED Urine Culture Comments NOT INDICATED Urine Opiates Screen NEGATIVE (NEGATIVE) Ur Buprenorphine Scrn NEGATIVE (NEGATIVE) Ur Oxycodone Screen NEGATIVE (NEGATIVE) Urine Methadone Screen NEGATIVE (NEGATIVE) Ur Barbiturates Screen NEGATIVE (NEGATIVE) Ur Tricyclics Screen POSITIVE H (NEGATIVE) Ur Phencyclidine Scrn NEGATIVE (NEGATIVE) Ur Amphetamine Screen NEGATIVE (NEGATIVE) U Methamphetamines Scrn NEGATIVE (NEGATIVE) U Benzodiazepines Scrn NEGATIVE (NEGATIVE) Urine Cocaine Screen NEGATIVE (NEGATIVE) U Cannabinoids Screen NEGATIVE (NEGATIVE) Ur Drug Screen Comment CUTOFF CONC BELOW: 12/18/23 Range/Units 05:38 WBC (4.8-10.8) x10^3/uL RBC (4.20-5.40) 10^6/uL Hgb (12.0-16.0) g/dL Hct (37.0-47.0) % MCV (81.0-99.0) fL MCH (27.0-31.0) pg MCHC (32.0-36.0) g/dL RDW (12.0-15.0) % Plt Count (130-450) 10^3/uL MPV (7.9-10.8) fL Neut # (Auto) (1.5-6.6) 10^3/uL Lymph # (Auto) (1.5-3.5) 10^3/uL [place] # (Auto) (0.0-1.0) 10^3/uL Eos # (Auto) (0.0-0.7) 10^3/uL Baso # (Auto) (0.0-0.1) 10^3/uL Absolute Nucleated RBC x10^3/uL Nucleated RBC % /100WBC Sodium (135-145) mmol/L Potassium (3.5-4.5) mmol/L Chloride (101-111) mmol/L Carbon Dioxide (21-32) mmol/L Anion Gap (6-13) BUN (6-20) mg/dL Creatinine (0.6-1.3) mg/dL Estimated GFR (MDRD) (>89) Glucose (74-104) mg/dL Estimat Average Glucose 91 (70-100) mg/dL Hemoglobin A1c % 4.8 (4.27-6.07) % Calcium (8.5-10.3) mg/dL Phosphorus (2.5-5.0) mg/dL Magnesium (1.7-2.3) mg/dL Urine Color Urine Clarity (CLEAR) Urine pH (5.0-7.5) PH Ur Specific [place] (1.002-1.030) Urine Protein (NEGATIVE) mg/dL Urine Glucose (UA) (NEGATIVE) mg/dL Urine Ketones (NEGATIVE) mg/dL Urine Occult Blood (NEGATIVE) Urine Nitrite (NEGATIVE) Urine Bilirubin (NEGATIVE) Urine Urobilinogen (NORMAL) E.U./dL Ur Leukocyte Esterase (NEGATIVE) Ur Microscopic Review Urine Culture Comments Urine Opiates Screen (NEGATIVE) Ur Buprenorphine Scrn (NEGATIVE) Ur Oxycodone Screen (NEGATIVE) Urine Methadone Screen (NEGATIVE) Ur Barbiturates Screen (NEGATIVE) Ur Tricyclics Screen (NEGATIVE) Ur Phencyclidine Scrn (NEGATIVE) Ur Amphetamine Screen (NEGATIVE) U Methamphetamines Scrn (NEGATIVE) U Benzodiazepines Scrn (NEGATIVE) Urine Cocaine Screen (NEGATIVE) U Cannabinoids Screen (NEGATIVE) Ur Drug Screen Comment Assessment/Plan - Problem List (1) Drug overdose Impression: The patient presented with a possible drug overdose. Urine drug screen was positive for tricyclics. The patient has been found an empty bottle of amitriptyline at home and she has not been on this for quite some time. Poison control was notified and we are currently monitoring EKGs. She is hemod ynamically stable at this time. Still quite confused. Also at the time of admission her alcohol level was elevated at 250. I am placing her on CIWA protocol today. A meaningful review of systems could not be obtained from the patient. There are no family members at the bedside. (2) Suicide attempt Impression: The patient has a history of a suicide attempt in the past. She had recently told her that she had suicidal ideation but she did not have a plan. Then she did not talk about it recently so he felt like she was okay. There is an empty bottle of amitriptyline and for now this is a presumed suicide attempt. Will place her on one-to-one supervision and she likely will need psych evaluation and placement prior to going home. (3) Alcohol withdrawal Impression: The patient's alcohol level was elevated at 250 at the time of admission. Will place her on CIWA protocol for now. (4) Toxic encephalopathy Impression: Patient is still acutely encephalopathic likely due to amitriptyline overdose and alcohol intoxication. Supportive care at this point and she will be treated for alcohol withdrawal (5) Severe major depression Impression: The patient was on duloxetine 60 mg daily at home as well as trazodone 50 mg p.o. nightly and also took lorazepam 0.5 mg daily as needed. For now I am holding all of these medications. (6) Migraine Impression: The patient takes Topamax at home. This is currently been held (7) History of seizure disorder Impression: Continue to monitor closely. She should be under seizure precautions (8) Hypertensive urgency Impression: She takes lisinopril 10 mg daily at home. She cannot safely swallow pills at this point. She has IV hydralazine available as needed (9) Hyponatremia Impression: Resolved with IV fluids (10) Pancytopenia Impression: Of undetermined significance at this point. She has rather significant thrombocytopenia and now with pancytopenia. This could be due to underlying liver dysfunction. Will monitor a CBC daily and further workup can be performed after she recuperates from this acute illness. (11) Hypokalemia Impression: Repleted and resolved Disposition: The patient's status will be changed from observation to a full admission. The patient is still acutely encephalopathic. She may be having alcohol withdrawal. This was an apparent suicide attempt and she will need to be held on one-to-one supervision until she can have a psych evaluation and probable psych placement. Time spent: 35 minutes
[2023-12-19] MEDS ORDERED: POTASSIUM CHLORIDE INJ 40 MEQ in SODIUM CHLORIDE 0.9% 500 ML IV ONE (11:45)
[2023-12-19] MEDS: POTASSIUM CHLOR 10 MEQ/100 ML 10 MEQ/100 ML BAG IV SCH (12:45)
[2023-12-19] MEDS: MULTIVITAMIN 10 ML, THIAMINE INJ 100 MG, FOLIC ACID INJ 1 MG in SODIUM CHLORIDE 0.9% 1,... IV SCH (12:46)
[2023-12-19 13:24] LABS: BILIRUBIN,URINE NEGATIVE (NEGATIVE); GLUCOSE, URINE (UA) NEGATIVE (NEGATIVE); KETONES,URINE (UA) NEGATIVE (NEGATIVE); LEUKOCYTE ESTERASE, URINE NEGATIVE (NEGATIVE); NITRITE,URINE NEGATIVE (NEGATIVE); OCCULT BLOOD,URINE NEGATIVE (NEGATIVE); PH,URINE 7.5 PH (5.0-7.5); PROTEIN,URINE NEGATIVE (NEGATIVE); UROBILINOGEN,URINE 0.2 (NORMAL) E.U./dL (NORMAL)
[2023-12-19 13:30] LABS: CLARITY,URINE CLEAR (CLEAR)
[2023-12-19] MEDS: LORazepam 2 MG/ML VIAL IVP PRN (14:52)
[2023-12-19] MEDS: IPRATROPIUM/ALBUTEROL 3 ML NEB INH SCH (15:26)
[2023-12-19] MEDS ORDERED: LORazepam 2 MG/ML VIAL IVP PRN (17:48)
[2023-12-19 18:43] LABS: BASOPHILS % (AUTO) 0.2 %; HCT - HEMATOCRIT 37.3 % (37.0-47.0); LYMPHOCYTES # (AUTO) 0.9 10^3/uL (1.5-3.5); LYMPHOCYTES % (AUTO) 18.2 %; MEAN CORPUSCULAR HEMOGLOBIN 36.7 pg (27.0-31.0); MEAN CORPUSCULAR HGB CONC 34.9 g/dL (32.0-36.0); MEAN CORPUSCULAR VOLUME 105.4 fL (81.0-99.0); MONOCYTES # (AUTO) 0.4 10^3/uL (0.0-1.0); MONOCYTES % (AUTO) 8.3 %; NEUTROPHILS # (AUTO) 3.4 10^3/uL (1.5-6.6); NEUTROPHILS % (AUTO) 72.9 %; PLT - PLATELET COUNT 38 10^3/uL (130-450); RED BLOOD COUNT 3.54 10^6/uL (4.20-5.40); RED CELL DISTRIBUTION WIDTH 14.3 % (12.0-15.0); WHITE BLOOD COUNT 4.7 x10^3/uL (4.8-10.8)
[2023-12-19 18:49] LABS: INR 1.3 (0.8-1.2); PT - PROTHROMBIN TIME 14.2 secs (9.9-12.6)
[2023-12-19 18:59] LABS: ALBUMIN 4.2 g/dL (3.2-5.5); ALBUMIN/GLOBULIN RATIO 1.3 (1.0-2.2); BILIRUBIN,TOTAL 1.4 mg/dL (0.2-1.0); CALCIUM 9.6 mg/dL (8.5-10.3); CREATININE 0.8 mg/dL (0.6-1.3); POTASSIUM 4.3 mmol/L (3.5-4.5); TOTAL PROTEIN 7.4 g/dL (6.4-8.9)
[2023-12-19] MEDS: TOPIRAMATE 100 MG TABLET PO SCH (21:45)
[2023-12-20] MEDS: SODIUM CHLORIDE 0.9% 500 ML IV PRN
[2023-12-20 05:56] LABS: BASOPHILS % (AUTO) 0.2 %; HCT - HEMATOCRIT 36.7 % (37.0-47.0); HGB - HEMOGLOBIN 12.4 g/dL (12.0-16.0); LYMPHOCYTES # (AUTO) 1.1 10^3/uL (1.5-3.5); LYMPHOCYTES % (AUTO) 23.6 %; MEAN CORPUSCULAR HEMOGLOBIN 35.9 pg (27.0-31.0); MEAN CORPUSCULAR HGB CONC 33.8 g/dL (32.0-36.0); MEAN CORPUSCULAR VOLUME 106.4 fL (81.0-99.0); MONOCYTES # (AUTO) 0.4 10^3/uL (0.0-1.0); MONOCYTES % (AUTO) 9.5 %; NEUTROPHILS % (AUTO) 66.5 %; PLT - PLATELET COUNT 43 10^3/uL (130-450); RED BLOOD COUNT 3.45 10^6/uL (4.20-5.40); RED CELL DISTRIBUTION WIDTH 14.4 % (12.0-15.0); WHITE BLOOD COUNT 4.5 x10^3/uL (4.8-10.8)
[2023-12-20 06:13] LABS: ALBUMIN 3.9 g/dL (3.2-5.5); CALCIUM 9.1 mg/dL (8.5-10.3); CREATININE 0.8 mg/dL (0.6-1.3); MAGNESIUM 1.8 mg/dL (1.7-2.3); PHOSPHORUS 2.6 mg/dL (2.5-5.0); POTASSIUM 3.6 mmol/L (3.5-4.5)
--- NOTE | 2023-12-20 11:11 | PROVIDER PROGRESS NOTE ---
Subjective - Prog Note Date Prog Note Date: 12/20/23 Prog Note Time: 11:10 - Subjective Subjective: The patient is a little more alert today. She is still lethargic but is able to wake up a bit. She was able to confirm she did intentionally take medication. She could not confirm she took Amitriptyline. She said she cannot remember but did indicate that she took Zoloft. She was unable to give me a good review of systems.She did tell me she had some epigastric abdominal pain yesterday but that was about as much as I could get out of her. Current Medications - Current Medications Current Medications: Active Medications Generic Name Dose Route Start Last Admin Trade Name Freq PRN Reason Stop Dose Admin Acetaminophen 650 mg 12/18/23 04:45 Acetaminophen 325 Mg Tablet PO Q6H PRN Pain 1 to 4, or Fever Albuterol/Ipratropium 3 ml 12/19/23 15:00 12/20/23 09:09 Ipratropium/Albuterol 3 Ml Neb INH Not Given RTQID JOEY Budesonide 0.5 mg 12/18/23 07:00 12/20/23 09:09 Budesonide 0.5 Mg/2 Ml Neb INH Not Given RTBID JOEY Famotidine 20 mg 12/18/23 09:00 12/20/23 08:35 Famotidine 20 Mg/2 Ml Vial IVP 20 mg BID JOEY Administration Hydralazine HCl 10 mg 12/19/23 07:44 Hydralazine Inj 20 Mg/Ml Vial IVP Q6H PRN Hypertensive Emergency Acetaminophen 1,000 mg in 100 mls @ 400 mls/hr 12/18/23 19:06 Acetaminophen IV Q6HR PRN Moderate Pain (Level 4-6) Multivitamins 10 ml/ Thiamine 1,011.2 mls @ 100 mls/hr 12/19/23 12:00 12/19/23 23:00 HCl 100 mg/ Folic Acid 1 mg/ IV Infused Sodium Chloride DAILY@1200 JOEY Infusion Sodium Chloride 500 mls @ 20 mls/hr 12/19/23 23:25 12/20/23 00:00 Normal Saline 0.9% IV 20 mls/hr Q24H PRN Administration TKO RATE Lisinopril 10 mg 12/18/23 09:00 12/20/23 08:35 Lisinopril 5 Mg Tablet PO 10 mg DAILY JOEY Administration Lorazepam 1 mg 12/19/23 10:07 12/19/23 23:41 Lorazepam 2 Mg/Ml Vial IVP 1 mg Q30M PRN Administration CIWA >8 Protocol Lorazepam 1 mg 12/19/23 17:48 Lorazepam 2 Mg/Ml Vial IVP Q2H PRN Anxiety Ondansetron HCl 4 mg 12/18/23 04:45 Ondansetron Odt 4 Mg Tablet TL Q6HR PRN Nausea / Vomiting Sodium Chloride 10 ml 12/18/23 09:00 12/20/23 08:35 Sodium Chloride Flush 0.9% 10 Ml Syringe IVP 10 ml 0100,0900,1700 JOEY Administration Sodium Chloride 10 ml 12/18/23 04:45 12/18/23 22:24 Sodium Chloride Flush 0.9% 10 Ml Syringe IVP 10 ml PRN PRN Administration NEEDED PER PROVIDER ORDERS Topiramate 150 mg 12/19/23 21:00 12/20/23 08:35 Topiramate 100 Mg Tablet PO 150 mg BID JOEY Administration LORazepam [Ativan] 0.5 mg PO PRN PRN 07/23/21 DULoxetine [Cymbalta] 60 mg PO DAILY 01/25/23 Montelukast [Singulair] 10 mg PO QPM 01/25/23 traZODone [Desyrel] 50 mg PO HS 01/25/23 Benralizumab [Fasenra Pen] 30 mg SUBQ Q56D 12/18/23 Cetirizine [ZyrTEC] 10 mg PO BID 12/18/23 Fluticasone/Umeclidin/Vilanter [Trelegy Ellipta 200-62.5-25] 1 unit INH DAILY 12/18/23 Topiramate [Topamax] 150 mg PO BID 12/18/23 Objective - Vital Signs/Intake & Output Reviewed Vital Signs: Yes Vital Signs: Vital Signs x48h Temp Pulse Resp BP Pulse Ox 12/20/23 08:12 36.4 C L 98 18 145/95 H 96 12/20/23 05:00 36.4 C L 84 16 158/93 H 97 Intake & Output: Intake & Output 09/01/24 09/02/24 09/03/24 09/04/24 23:59 23:59 23:59 23:59 Intake Total 0470.417 2801.783 120 Output Total 4365 870 3432 Balance 2270.417 2551.783 -1080 - Objective General Appearance: positive: No acute distress Eyes Bilateral: positive: Normal inspection ENT: positive: ENT inspection nml Neck: positive: Nml inspection Respiratory: positive: Chest non-tender, No respiratory distress, Other (She will not cooperate for an exam) Cardiovascular: positive: Regular rate & rhythm, No murmur, No gallop. negative: Friction rub Abdomen: positive: Non-tender, No organomegaly, Nml bowel sounds Skin: positive: Color nml, No rash, Warm Extremities: positive: Non-tender, Full ROM Neurologic/Psychiatric: positive: Other (She knew her name and that she was in the hospital. She also was able to confirm she took medications intentionally. Still quite lethargic with some confusion.) - Lab Results Fish Bones: 12/20/23 05:23 12/20/23 05:23 Other Labs: Lab Results x24hrs 12/20/23 12/20/23 12/19/23 Range/Units 05:23 05:23 18:38 WBC 4.5 L (4.8-10.8) x10^3/uL RBC 3.45 L (4.20-5.40) 10^6/uL Hgb 12.4 (12.0-16.0) g/dL Hct 36.7 L (37.0-47.0) % MCV 106.4 H (81.0-99.0) fL MCH 35.9 H (27.0-31.0) pg MCHC 33.8 (32.0-36.0) g/dL RDW 14.4 (12.0-15.0) % Plt Count 43 L (130-450) 10^3/uL MPV 10.0 (7.9-10.8) fL Neut # (Auto) 3.0 (1.5-6.6) 10^3/uL Lymph # (Auto) 1.1 L (1.5-3.5) 10^3/uL [place] # (Auto) 0.4 (0.0-1.0) 10^3/uL Eos # (Auto) 0.0 (0.0-0.7) 10^3/uL Baso # (Auto) 0.0 (0.0-0.1) 10^3/uL Absolute Nucleated RBC 0.00 x10^3/uL Nucleated RBC % 0.0 /100WBC PT (9.9-12.6) secs INR (0.8-1.2) Sodium 137 138 (135-145) mmol/L Potassium 3.6 4.3 (3.5-4.5) mmol/L Chloride 107 106 (101-111) mmol/L Carbon Dioxide 21 23 (21-32) mmol/L Anion Gap 9.0 9.0 (6-13) BUN 11 10 (6-20) mg/dL Creatinine 0.8 0.8 (0.6-1.3) mg/dL Estimated GFR (MDRD) 76 L 76 L (>89) Glucose 90 110 H (74-104) mg/dL Calcium 9.1 9.6 (8.5-10.3) mg/dL Phosphorus 2.6 (2.5-5.0) mg/dL Magnesium 1.8 (1.7-2.3) mg/dL Total Bilirubin 1.4 H (0.2-1.0) mg/dL AST 32 (10-42) IU/L ALT 32 (10-60) IU/L Alkaline Phosphatase 126 H (42-121) IU/L Total Protein 7.4 (6.4-8.9) g/dL Albumin 3.9 4.2 (3.2-5.5) g/dL Globulin 3.2 (2.1-4.2) g/dL Albumin/Globulin Ratio 1.3 (1.0-2.2) Urine Color Urine Clarity (CLEAR) Urine pH (5.0-7.5) PH Ur Specific [place] (1.002-1.030) Urine Protein (NEGATIVE) mg/dL Urine Glucose (UA) (NEGATIVE) mg/dL Urine Ketones (NEGATIVE) mg/dL Urine Occult Blood (NEGATIVE) Urine Nitrite (NEGATIVE) Urine Bilirubin (NEGATIVE) Urine Urobilinogen (NORMAL) E.U./dL Ur Leukocyte Esterase (NEGATIVE) Ur Microscopic Review Urine Culture Comments 12/19/23 12/19/23 12/19/23 Range/Units 18:38 18:38 13:15 WBC 4.7 L (4.8-10.8) x10^3/uL RBC 3.54 L (4.20-5.40) 10^6/uL Hgb 13.0 (12.0-16.0) g/dL Hct 37.3 (37.0-47.0) % MCV 105.4 H (81.0-99.0) fL MCH 36.7 H (27.0-31.0) pg MCHC 34.9 (32.0-36.0) g/dL RDW 14.3 (12.0-15.0) % Plt Count 38 L (130-450) 10^3/uL MPV 9.0 (7.9-10.8) fL Neut # (Auto) 3.4 (1.5-6.6) 10^3/uL Lymph # (Auto) 0.9 L (1.5-3.5) 10^3/uL [place] # (Auto) 0.4 (0.0-1.0) 10^3/uL Eos # (Auto) 0.0 (0.0-0.7) 10^3/uL Baso # (Auto) 0.0 (0.0-0.1) 10^3/uL Absolute Nucleated RBC 0.00 x10^3/uL Nucleated RBC % 0.0 /100WBC PT 14.2 H (9.9-12.6) secs INR 1.3 H (0.8-1.2) Sodium (135-145) mmol/L Potassium (3.5-4.5) mmol/L Chloride (101-111) mmol/L Carbon Dioxide (21-32) mmol/L Anion Gap (6-13) BUN (6-20) mg/dL Creatinine (0.6-1.3) mg/dL Estimated GFR (MDRD) (>89) Glucose (74-104) mg/dL Calcium (8.5-10.3) mg/dL Phosphorus (2.5-5.0) mg/dL Magnesium (1.7-2.3) mg/dL Total Bilirubin (0.2-1.0) mg/dL AST (10-42) IU/L ALT (10-60) IU/L Alkaline Phosphatase (42-121) IU/L Total Protein (6.4-8.9) g/dL Albumin (3.2-5.5) g/dL Globulin (2.1-4.2) g/dL Albumin/Globulin Ratio (1.0-2.2) Urine Color LIGHT YELLOW Urine Clarity CLEAR (CLEAR) Urine pH 7.5 (5.0-7.5) PH Ur Specific [place] 1.015 (1.002-1.030) Urine Protein NEGATIVE (NEGATIVE) mg/dL Urine Glucose (UA) NEGATIVE (NEGATIVE) mg/dL Urine Ketones NEGATIVE (NEGATIVE) mg/dL Urine Occult Blood NEGATIVE (NEGATIVE) Urine Nitrite NEGATIVE (NEGATIVE) Urine Bilirubin NEGATIVE (NEGATIVE) Urine Urobilinogen 0.2 (NORMAL) (NORMAL) E.U./dL Ur Leukocyte Esterase NEGATIVE (NEGATIVE) Ur Microscopic Review NOT INDICATED Urine Culture Comments NOT INDICATED Assessment/Plan - Problem List (1) Drug overdose Impression: The patient was able to confirm that this was an intentional drug overdose. She could not recall taking amitriptyline but did say that she took Zoloft. She did test positive for tricyclics and her did find an empty bottle of amitriptyline so it seems likely that she took this as well. Supportive care for now. Serial EKGs were performed yesterday with no significant changes. Will obtain 1 more EKG this morning and then stop. (2) Suicide attempt Impression: Once she wakes up and is more interactive we will get an telepsych consult and she will be referred for inpatient psychiatric care for intentional drug overdose (3) Alcohol withdrawal Impression: Continue CIWA protocol. (4) Toxic encephalopathy Impression: Due to intentional drug overdose and possible alcohol withdrawal. Slowly improving (5) Severe major depression Impression: She will need inpatient psychiatric evaluation and treatment (6) Migraine Impression: Continue Topamax (7) History of seizure disorder Impression: She has had no seizure activity during this hospitalization. She takes Topamax to control her seizures. (8) Hypertensive urgency Impression: Improved. Continue lisinopril (9) Hyponatremia Impression: Resolved (10) Pancytopenia Impression: Of undetermined significance at this point. Possibly due to liver dysfunction. Platelet level is quite low. Further workup can be obtained as an outpatient. For now her blood counts are stable (11) Hypokalemia Impression: Repleted and resolved Disposition: Inpatient hospitalization remains necessary. The patient is still quite groggy and confused from an intentional drug overdose. She needs to be stabilized and then we will pursue inpatient psychiatric placement Time spent: 35 minutes
[2023-12-20] MEDS: MULTIVITAMIN 10 ML, THIAMINE INJ 100 MG, FOLIC ACID INJ 1 MG in SODIUM CHLORIDE 0.9% 1,... IV SCH (12:40)
[2023-12-21 05:29] LABS: HCT - HEMATOCRIT 36.5 % (37.0-47.0); HGB - HEMOGLOBIN 12.3 g/dL (12.0-16.0); LYMPHOCYTES # (AUTO) 1.1 10^3/uL (1.5-3.5); LYMPHOCYTES % (AUTO) 18.2 %; MEAN CORPUSCULAR HEMOGLOBIN 35.8 pg (27.0-31.0); MEAN CORPUSCULAR HGB CONC 33.7 g/dL (32.0-36.0); MEAN CORPUSCULAR VOLUME 106.1 fL (81.0-99.0); MEAN PLATELET VOLUME 9.7 fL (7.9-10.8); MONOCYTES # (AUTO) 0.5 10^3/uL (0.0-1.0); MONOCYTES % (AUTO) 8.1 %; NEUTROPHILS # (AUTO) 4.4 10^3/uL (1.5-6.6); NEUTROPHILS % (AUTO) 73.4 %; PLT - PLATELET COUNT 57 10^3/uL (130-450); RED BLOOD COUNT 3.44 10^6/uL (4.20-5.40); RED CELL DISTRIBUTION WIDTH 14.6 % (12.0-15.0)
[2023-12-21 05:49] LABS: ALBUMIN 3.8 g/dL (3.2-5.5); CALCIUM 9.1 mg/dL (8.5-10.3); CREATININE 0.9 mg/dL (0.6-1.3); MAGNESIUM 1.6 mg/dL (1.7-2.3); PHOSPHORUS 2.8 mg/dL (2.5-5.0); POTASSIUM 3.5 mmol/L (3.5-4.5)
[2023-12-21] MEDS ORDERED: MAGNESIUM SULFATE 1 GM/2 ML VIAL IVP STA (07:08)
[2023-12-21] MEDS: MAGNESIUM SULFATE 2 GRAM 2 GM/50 ML BAG IV ONE (07:50)
[2023-12-21] MEDS: PRENATAL VITAMIN TABLET PO SCH (07:50)
--- NOTE | 2023-12-21 09:07 | PROVIDER PROGRESS NOTE ---
Subjective - Prog Note Date Prog Note Date: 12/21/23 Prog Note Time: 09:05 - Subjective Pt reports feeling: Improved Subjective: The patient is much improved today. She is awake and alert and sitting up in bed eating her breakfast. She answers questions appropriately. She does confirm that she took pills. She thinks it may have been the amitriptyline and possibly along with some Zoloft. She became quite tearful when discussing her situation. She said that she has been quite inactive due to back pain. She is waiting to get an injection in her lower spine and hips. She said this keeps her from doing things around the house. She says that her house was under renovation and the kraft have been taken down to the studies. She also says that her has not been able to get organized enough to finish the job. Also he has not finished a job in the yard. And she feels quite hopeless that it is ever going to get done. She says that she is depressed and has been for quite some time. In regards to her alcohol use she says that she does drink every day. She says she pours 2 ounce shots of vodka and drinks at least 6 or 7 of these a day. She has never had issues with alcohol withdrawal. She does not exactly recall what happened prior to her taking the pills. She thinks that she had been drinking and that her and her got in an argument possibly due to to how much she had drank. She does not recall taking all of the pills but does recall being extremely hopeless We did discuss that she will need inpatient psychiatric evaluation. She is medically cleared as of today and I will let the social workers know so that they can work on placement. This morning she denies fever or shaking chills. No chest pain or heart palpitations. No nausea vomiting or diarrhea. No urinary complaints. She says she just feels weak this morning and extremely depressed and hopeless. Current Medications - Current Medications Current Medications: Active Medications Generic Name Dose Route Start Last Admin Trade Name Freq PRN Reason Stop Dose Admin Acetaminophen 650 mg 12/18/23 04:45 Acetaminophen 325 Mg Tablet PO Q6H PRN Pain 1 to 4, or Fever Albuterol/Ipratropium 3 ml 12/19/23 15:00 12/21/23 07:02 Ipratropium/Albuterol 3 Ml Neb INH 3 ml RTQID JOEY Administration Budesonide 0.5 mg 12/18/23 07:00 12/21/23 07:01 Budesonide 0.5 Mg/2 Ml Neb INH 0.5 mg RTBID JOEY Administration Famotidine 20 mg 12/18/23 09:00 12/21/23 07:50 Famotidine 20 Mg/2 Ml Vial IVP 20 mg BID JOEY Administration Hydralazine HCl 10 mg 12/19/23 07:44 Hydralazine Inj 20 Mg/Ml Vial IVP Q6H PRN Hypertensive Emergency Acetaminophen 1,000 mg in 100 mls @ 400 mls/hr 12/18/23 19:06 Acetaminophen IV Q6HR PRN Moderate Pain (Level 4-6) Sodium Chloride 500 mls @ 20 mls/hr 12/19/23 23:25 12/20/23 00:00 Normal Saline 0.9% IV 20 mls/hr Q24H PRN Administration TKO RATE Lisinopril 10 mg 12/18/23 09:00 12/21/23 07:51 Lisinopril 5 Mg Tablet PO 10 mg DAILY JOEY Administration Lorazepam 1 mg 12/19/23 10:07 12/19/23 23:41 Lorazepam 2 Mg/Ml Vial IVP 1 mg Q30M PRN Administration CIWA >8 Protocol Lorazepam 1 mg 12/19/23 17:48 Lorazepam 2 Mg/Ml Vial IVP Q2H PRN Anxiety Ondansetron HCl 4 mg 12/18/23 04:45 Ondansetron Odt 4 Mg Tablet TL Q6HR PRN Nausea / Vomiting Polyethylene Glycol 17 gm 12/21/23 09:00 Polyethylene Glycol 3350 17 Gm Packet PO DAILY JOEY Multivit/Folic Acid/Iron 1 tab 12/21/23 08:00 12/21/23 07:50 Vitamin Tablet PO 1 tab DAILYWM JOEY Administration Sodium Chloride 10 ml 12/18/23 09:00 12/21/23 07:51 Sodium Chloride Flush 0.9% 10 Ml Syringe IVP 10 ml 0100,0900,1700 JOEY Administration Sodium Chloride 10 ml 12/18/23 04:45 12/18/23 22:24 Sodium Chloride Flush 0.9% 10 Ml Syringe IVP 10 ml PRN PRN Administration NEEDED PER PROVIDER ORDERS Thiamine HCl 100 mg 12/21/23 09:00 Thiamine 100 Mg Tablet PO DAILY JOEY Topiramate 150 mg 12/19/23 21:00 12/21/23 07:50 Topiramate 100 Mg Tablet PO 150 mg BID JOEY Administration LORazepam [Ativan] 0.5 mg PO PRN PRN 07/23/21 DULoxetine [Cymbalta] 60 mg PO DAILY 01/25/23 Montelukast [Singulair] 10 mg PO QPM 01/25/23 traZODone [Desyrel] 50 mg PO HS 01/25/23 Benralizumab [Fasenra Pen] 30 mg SUBQ Q56D 12/18/23 Cetirizine [ZyrTEC] 10 mg PO BID 12/18/23 Fluticasone/Umeclidin/Vilanter [Trelegy Ellipta 200-62.5-25] 1 unit INH DAILY 12/18/23 Topiramate [Topamax] 150 mg PO BID 12/18/23 Objective - Vital Signs/Intake & Output Reviewed Vital Signs: Yes Vital Signs: Vital Signs x48h Temp Pulse Pulse Resp BP Pulse Ox 12/21/23 08:40 36.4 C L 99 16 143/79 H 94 12/21/23 07:37 36.6 C 105 H 24 130/73 93 12/21/23 07:03 84 20 12/21/23 05:00 36.7 C 85 20 134/81 H 97 Intake & Output: Intake & Output 12/18/23 12/19/23 12/20/23 12/21/23 23:59 23:59 23:59 23:59 Intake Total 3950.417 2801.783 1240 447 Output Total 6276 126 9176 Balance 2270.417 2551.783 -1660 447 - Objective General Appearance: positive: No acute distress, Anxious, Other (She is tearful and depressed) Eyes Bilateral: positive: Normal inspection ENT: positive: ENT inspection nml, Other (She has a small wound that is scabbed over above her upper lip) Neck: positive: Nml inspection Respiratory: positive: Chest non-tender, No respiratory distress, Breath sounds nml Cardiovascular: positive: Regular rate & rhythm, No murmur, No gallop. negative: Friction rub Abdomen: positive: Non-tender, Nml bowel sounds Skin: positive: Color nml, No rash, Warm, Dry Extremities: positive: Non-tender Neurologic/Psychiatric: positive: Oriented x3, CN's nml (2-12) - Lab Results Fish Bones: 12/21/23 05:08 12/21/23 05:08 Other Labs: Lab Results x24hrs 12/21/23 12/21/23 Range/Units 05:08 05:08 WBC 6.0 (4.8-10.8) x10^3/uL RBC 3.44 L (4.20-5.40) 10^6/uL Hgb 12.3 (12.0-16.0) g/dL Hct 36.5 L (37.0-47.0) % MCV 106.1 H (81.0-99.0) fL MCH 35.8 H (27.0-31.0) pg MCHC 33.7 (32.0-36.0) g/dL RDW 14.6 (12.0-15.0) % Plt Count 57 L (130-450) 10^3/uL MPV 9.7 (7.9-10.8) fL Neut # (Auto) 4.4 (1.5-6.6) 10^3/uL Lymph # (Auto) 1.1 L (1.5-3.5) 10^3/uL [place] # (Auto) 0.5 (0.0-1.0) 10^3/uL Eos # (Auto) 0.0 (0.0-0.7) 10^3/uL Baso # (Auto) 0.0 (0.0-0.1) 10^3/uL Absolute Nucleated RBC 0.00 x10^3/uL Nucleated RBC % 0.0 /100WBC Sodium 138 (135-145) mmol/L Potassium 3.5 (3.5-4.5) mmol/L Chloride 109 (101-111) mmol/L Carbon Dioxide 22 (21-32) mmol/L Anion Gap 7.0 (6-13) BUN 13 (6-20) mg/dL Creatinine 0.9 (0.6-1.3) mg/dL Estimated GFR (MDRD) 66 L (>89) Glucose 126 H (74-104) mg/dL Calcium 9.1 (8.5-10.3) mg/dL Phosphorus 2.8 (2.5-5.0) mg/dL Magnesium 1.6 L (1.7-2.3) mg/dL Albumin 3.8 (3.2-5.5) g/dL ABX Reporting Has patient been on IV antibiotics over the past 48 hours?: No Sepsis Event Note (H) - Evaluation Current Stage of Sepsis: Ruled out Assessment/Plan - Problem List (1) Drug overdose Impression: The patient confirms that this was likely an intentional drug overdose taken while she was intoxicated. She continues to be quite hopeless and depressed and would benefit from inpatient psychiatric evaluation and treatment. (2) Suicide attempt Impression: Plan as above (3) Alcohol withdrawal Impression: Improving. Continue CIWA protocol (4) Toxic encephalopathy Impression: Secondary to intentional drug overdose and alcohol intoxication. Resolving (5) Severe major depression Impression: She will need inpatient psychiatric evaluation and treatment (6) Migraine Impression: Continue Topamax (7) History of seizure disorder Impression: Continue Topamax (8) Hypertensive urgency Impression: Improved. Continue lisinopril 10 mg daily (9) Hyponatremia Impression: Resolved (10) Pancytopenia Impression: The patient states that she follows with hematology as an outpatient and carries a diagnosis of ITP. Continue to monitor closely. (11) Hypokalemia Impression: Repleted and resolved Disposition: Inpatient hospitalization remains necessary for inpatient psych p lacement. The patient is medically cleared as of today and is stable for transfer to an inpatient psychiatric facility as soon as a bed is found. Time spent: 35 minutes
[2023-12-21] MEDS: polyethylene glycoL 3350 17 GM PACKET PO SCH (10:18)
[2023-12-21] MEDS: THIAMINE 100 MG TABLET PO SCH (10:18)
[2023-12-21] MEDS: traMADol 50 MG TABLET PO PRN (16:54)
[2023-12-21] MEDS: FAMOTIDINE 20 MG TABLET PO SCH (20:29)
[2023-12-21] MEDS: traZODone 50 MG TABLET PO PRN (23:41)
[2023-12-22 06:04] LABS: HCT - HEMATOCRIT 35.7 % (37.0-47.0); HGB - HEMOGLOBIN 11.9 g/dL (12.0-16.0); LYMPHOCYTES # (AUTO) 1.1 10^3/uL (1.5-3.5); MEAN CORPUSCULAR HGB CONC 33.3 g/dL (32.0-36.0); MEAN CORPUSCULAR VOLUME 107.9 fL (81.0-99.0); MONOCYTES # (AUTO) 0.6 10^3/uL (0.0-1.0); MONOCYTES % (AUTO) 11.7 %; NEUTROPHILS # (AUTO) 3.6 10^3/uL (1.5-6.6); NEUTROPHILS % (AUTO) 67.1 %; PLT - PLATELET COUNT 57 10^3/uL (130-450); RED BLOOD COUNT 3.31 10^6/uL (4.20-5.40); RED CELL DISTRIBUTION WIDTH 14.3 % (12.0-15.0); WHITE BLOOD COUNT 5.4 x10^3/uL (4.8-10.8)
[2023-12-22 06:17] LABS: ALBUMIN 3.7 g/dL (3.2-5.5); CALCIUM 9.1 mg/dL (8.5-10.3); CREATININE 0.8 mg/dL (0.6-1.3); MAGNESIUM 1.6 mg/dL (1.7-2.3); PHOSPHORUS 4.8 mg/dL (2.5-5.0); POTASSIUM 3.4 mmol/L (3.5-4.5)
[2023-12-22] MEDS: POTASSIUM CHLORIDE 20 MEQ TABLET PO ONE (07:44)
--- NOTE | 2023-12-22 08:56 | Discharge Plan ---
Discharge Plan Problem Reviewed?: Yes Disposition: Home, Self Care Condition: Fair Prescriptions: Magnesium Oxide [Mag Ox] 400 mg PO BID #60 tablet Famotidine [Pepcid] 20 mg PO BID #60 tab Thiamine [Vitamin B-1] 100 mg PO DAILY #30 tab lisinopriL [Zestril] 10 mg PO DAILY #60 tab Diet: Regular Activity Restrictions: No Restrictions Plan of Treatment: You were admitted to the hospital with a drug overdose. Shortly after admission you began to have evidence of alcohol withdrawal. You were quite confused and lethargic and it was felt that you likely had taken amitriptyline. Poison control was contacted and you were monitored quite closely but fortunately began to improve. Initially were going to be held for inpatient psychiatric evaluation. However after further talking to you it appears that your suicide attempt was due to alcohol intoxication and you really have no recollection or preconceived plans to harm your self. Our social work team has set up appropriate follow-up for you. We have given you a list of local AA meetings and highly encourage you to get involved. You have had multiple electrolyte abnormalities. Would recommend taking a multivitamin as an outpatient and I have written you a prescription for ongoing magnesium. You should follow-up with your primary care physician as soon as possible as you likely will need to be initiated on a depression medicine. Assessment: 1. Drug overdose This was an intentional drug overdose however it was taken while she was intoxicated and upset. She did test positive for tricyclics and likely took amitriptyline as her found an empty bottle at home. She was monitored closely with serial EKGs and did not develop any significant issues. 2. Possible suicide attempt Again this was intentional but done while intoxicated. She has no suicidal ideation at this time. Social workers have set up appropriate follow-up. 3. Alcohol withdrawal She received CIWA protocol during this hospitalization. She has no further evidence of alcohol withdrawal on the day of discharge 4. Toxic encephalopathy Secondary to drug overdose and alcohol intoxication. Resolving 5. Severe major depression She will need to be initiated on depression medicine. She may require referral to outpatient psychiatry. Will defer to her primary care physician for this. 6. Migraine headaches She will resume her home dose of Topamax 7. Seizure disorder Continue home dose of Topamax 8. Hypertensive urgency Resolved. Continue lisinopril 10 mg daily 9. Hyponatremia Resolved 10. ITP; pancytopenia The patient follows with hematology as an outpatient and carries a diagnosis of ITP. Blood counts are low but stable. Would recommend keeping her regularly scheduled appointment with her prosthetics lab technician 11. Hypokalemia Repleted on the day of discharge 12. Hypomagnesemia Repleted on the day of discharge. I have written a prescription for ongoing magnesium supplementation No Smoking: If you smoke, Please STOP! Call for help. Follow-up with: CARLEEN JONES DO [Physician No Access] -
--- NOTE | 2023-12-22 09:07 | DISCHARGE SUMMARY ---
Discharge Summary Admit Date: 12/18/23 Discharge Date: 12/22/23 Discharging Provider: Delmy Palacios PA-C Primary Care Provider: Dr Dharmesh Payne Code Status: Attempt Resuscitation Condition at Discharge: Fair Discharge Disposition: 01 Home, Self Care - DIAGNOSES Discharge Diagnoses with Status of Each Condition: 1. Drug overdose This was an intentional drug overdose however it was taken while she was intoxicated and upset. She did test positive for tricyclics and likely took amitriptyline as her found an empty bottle at home. She was monitored closely with serial EKGs and did not develop any significant issues. 2. Possible suicide attempt Again this was intentional but done while intoxicated. She has no suicidal ideation at this time. Social workers have set up appropriate follow-up. 3. Alcohol withdrawal She received CIWA protocol during this hospitalization. She has no further evidence of alcohol withdrawal on the day of discharge 4. Toxic encephalopathy Secondary to drug overdose and alcohol intoxication. Resolving 5. Severe major depression She will need to be initiated on depression medicine. She may require referral to outpatient psychiatry. Will defer to her primary care physician for this. 6. Migraine headaches She will resume her home dose of Topamax 7. Seizure disorder Continue home dose of Topamax 8. Hypertensive urgency Resolved. Continue lisinopril 10 mg daily 9. Hyponatremia Resolved 10. ITP; pancytopenia The patient follows with hematology as an outpatient and carries a diagnosis of ITP. Blood counts are low but stable. 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 Hypokalemia Repleted on the day of discharge 12. Hypomagnesemia Repleted on the day of discharge. I have written a prescription for ongoing magnesium supplementation - HPI History of Present Illness: From the admission HP: pt with h/o depression, anxiety and previous SI brought to hospital s/p OD on approx 20 pills, per . pt also consumed large amounts of etoh. denies having an altercation but states he had told her she needs to sleep. she also reportedly vomited. no reports of suicide per . - HOSPITAL COURSE Hospital Course: The patient was admitted to the hospital with a drug overdose and alcohol intoxication. She tested positive for tricyclic antidepressants and had an empty bottle of amitriptyline found at the house by her . She initially was significantly confused and lethargic. She did develop evidence of alcohol withdrawal and was treated with CIWA protocol. Initially this was felt to be an intentional drug overdose and suicide attempt. We were considering holding her and pursuing inpatient psychiatric evaluation and treatment. However as the pat suzanna woke up became clear that she had no recollection of taking the pills. She states that she was intoxicated and apparently her and her had an argument about this and she apparently took the pills while intoxicated and has no memory of this. She has no further suicidal ideation and does not have a plan to harm herself. Our social workers have set up appropriate outpatient follow-up for her. We do not think that she needs to pursue inpatient psychiatric placement at this time. She likely needs treatment for a severe major depression but I will defer to her primary care provider on how he would like to treat this or whether he would want to pursue psychiatric evaluation as an outpatient. She had multiple electrolyte abnormalities that were repleted during this hospitalization. She also had extremely high blood pressures and was started on lisinopril. On the day of discharge the patient is quite stable and desires to go home. We have given her a list of AA meetings and at this point she seems motivated to stop drinking as this whole episode has scared her greatly. I discussed the plan of care with her and her and all of their questions were answered. At this point maximum hospital benefit has been reached. The patient will be discharged today in stable condition. - ALLERGIES Allergies/Adverse Reactions: Allergies Allergy/AdvReac Type Severity Reaction Status Date / Time Sulfa (Sulfonamide Allergy Anaphylaxis Verified 01/25/23 20:10 Antibiotics) - MEDICATIONS Home Medications: Ambulatory Orders Medication Instructions Recorded Confirmed LORazepam [Ativan] 0.5 mg PO PRN PRN 07/23/21 12/18/23 DULoxetine [Cymbalta] 60 mg PO DAILY 01/25/23 12/18/23 Montelukast [Singulair] 10 mg PO QPM 01/25/23 12/18/23 traZODone [Desyrel] 50 mg PO HS 01/25/23 12/18/23 Benralizumab [Fasenra Pen] 30 mg SUBQ Q56D 12/18/23 12/18/23 Cetirizine [ZyrTEC] 10 mg PO BID 12/18/23 12/18/23 Fluticasone/Umeclidin/Vilanter 1 unit INH DAILY 12/18/23 12/18/23 [Trelegy Ellipta 200-62.5-25] Topiramate [Topamax] 150 mg PO BID 12/18/23 12/18/23 Famotidine [Pepcid] 20 mg PO BID #60 tab 12/22/23 Magnesium Oxide [Mag Ox] 400 mg PO BID #60 tablet 12/22/23 Thiamine [Vitamin B-1] 100 mg PO DAILY #30 tab 12/22/23 lisinopriL [Zestril] 10 mg PO DAILY #60 tab 12/22/23 - PHYSICAL EXAM AT DISCHARGE General Appearance: positive: No acute distress Eyes Bilateral: positive: Normal inspection ENT: positive: ENT inspection nml Neck: positive: Nml inspection Respiratory: positive: Chest non-tender, No respiratory distress, Breath sounds nml Cardiovascular: positive: Regular rate & rhythm, No murmur, No gallop. negative: Friction rub Abdomen: positive: Non-tender, No organomegaly, Nml bowel sounds, No distention Skin: positive: Color nml, No rash, Warm, Dry Neurologic/Psychiatric: positive: Oriented x3, CN's nml (2-12) - LABS Result Diagrams: 12/22/23 05:17 12/22/23 05:17 - SEPSIS Current Stage of Sepsis: Ruled out - FOLLOW UP Follow Up: The patient should follow-up with her primary care physician Dr. Dharmesh Payne at first available appointment - TIME SPENT Time Spent in Discharge (Minutes): 45
[2023-12-22] MEDS: DOCUSATE SODIUM 250 MG CAPSULE PO SCH (09:28)
[2023-12-22] MEDS: SENNA 8.6 MG TABLET PO SCH (09:28)
[2023-12-22] MEDS: MAGNESIUM SULFATE 2 GRAM 2 GM/50 ML BAG IV ONE (09:29)
[2023-12-22 11:08] VITALS: BP 157/83; O2SAT 97
== END 2023-12-22 13:00 | disposition home or self-care (01) | DRG 917 ==
LOC: ED 02:09 → UNDOADMOB 04:46 → MS2 04:46 → ICU 05:38 → OBSVTOIN 12-19 10:11
PROVIDERS: ADMIT Student in an Organized Health Care Education/Training Program; ATTEND Physician Assistant
DX: T43.012A Poisoning by tricyclic antidepressants, intentional self-harm, initial encounter (principal); G92.8 Other toxic encephalopathy; F10.239 Alcohol dependence with withdrawal, unspecified; E87.1 Hypo-osmolality and hyponatremia; D69.3 Immune thrombocytopenic purpura; D61.818 Other pancytopenia; F32.9 Major depressive disorder, single episode, unspecified; G43.909 Migraine, unspecified, not intractable, without status migrainosus; G40.909 Epilepsy, unspecified, not intractable, without status epilepticus; I16.0 Hypertensive urgency; E87.6 Hypokalemia; E83.42 Hypomagnesemia; F41.9 Anxiety disorder, unspecified; I10 Essential (primary) hypertension; Y90.8 Blood alcohol level of 240 mg/100 ml or more
CPT/HCPCS: 36415; 51701; 80048; 80053; 80061; 80069; 80143; 80179; 80306; 81003; 82077; 82550; 83036; 83690; 83735; 84100; 84443; 85025; 85610; 93005; 94640; 96361; 96365; 99284; 99285; A9270; G0378; J2060; J3411; J7040; J7120; J7626; 81001; 83721; 87086